=== PATIENT | male | born 1960 | race Caucasian/White ===

== ENCOUNTER 2020-04-06 08:16 | Outpatient (REF) | payer OTHER, SELFPAY ==
[2020-04-06 11:33] LABS: Estimated Average Glucose 134 mg/dL; Hemoglobin A1c % 6.3 %
[2020-04-06 12:02] LABS: Alanine Aminotransferase 21 U/L (0-40); Albumin Level 4.4 g/dL (3.5-5.0); Alkaline Phosphatase 74 U/L (39-117); Anion Gap 16 (12-20); Aspartate Amino Transferase 17 U/L (5-37); Bilirubin Total 1.1 mg/dL (0.0-1.0); Blood Urea Nitrogen 13 mg/dL (9-16); Calcium 8.8 mg/dL (8.4-10.2); Carbon Dioxide 26 mmol/L (22-29); Chloride 104 mmol/L (96-108); Cholesterol 200 mg/dL; Estimated Glomerular Filt Rate > 60; Glucose Fasting 143 mg/dL (60-99); HDL Cholesterol 34 mg/dL; LDL Cholesterol Calculated 128 mg/dl; Potassium 4.3 mmol/l (3.3-5.1); Sodium 142 mmol/L (135-145); Triglycerides 194 mg/dL
[2020-04-06 12:11] LABS: Prostate Specific Antigen Scr 5.88 ng/mL (<0.05-4.0); TSH reflex Free T4 0.63 mIU/mL (0.32-4.0)
[2020-04-06 12:17] LABS: Creatinine Urine 162.64 mg/dL; Microalbum/Creatinine Ratio Ur 11.6 ug/mg cr
== END 2020-04-06 08:17 | disposition home or self-care (01) ==
LOC: HO.HMGCLDS 08:16
PROVIDERS: PCP Nurse Practitioner Family; Visit Provider Nurse Practitioner Family
DX: Z00.00 Encounter for general adult medical examination without abnormal findings (principal); E11.9 Type 2 diabetes mellitus without complications; Z12.5 Encounter for screening for malignant neoplasm of prostate
CPT/HCPCS: 80053; 80061; 82043; 83036; 84153; 84443

== ENCOUNTER → 2020-04-10 09:04 | Outpatient (BNVA) | payer SELFPAY | PROVIDERS: PCP Nurse Practitioner Family; Visit Provider Internal Medicine | DX: Z02.79 Encounter for issue of other medical certificate (principal) ==

== ENCOUNTER → 2020-04-27 13:35 | Outpatient (BNVA) | payer OTHER, SELFPAY | PROVIDERS: PCP Nurse Practitioner Family; Visit Provider Physician Assistant | DX: Z76.89 Persons encountering health services in other specified circumstances (principal) ==

== ENCOUNTER 2020-05-07 16:30 | Outpatient (REF) | payer OTHER, SELFPAY ==
--- NOTE | 2020-05-07 | XR_ITS ---
EXAMINATION: XR PELVIS CLINICAL INFORMATION: Sacroiliitis COMPARISON: Previous x-ray February [address] of the abdomen and pelvis August 2016 TECHNIQUE: AP view of the pelvis. FINDINGS: Bone alignment is normal. No fracture or dislocation is seen. There is arthritis at the hip joints with joint space narrowing and osteophyte formation, right greater than left. There is evidence of mild proliferative arthritis at the sacroiliac joints with osteophytes. No erosive changes are seen. There are degenerative changes of the visualized lower lumbar spine. Soft tissues are unremarkable. XR/XR pelvis 1-2V IMPRESSION: Bilateral hip arthritis, right greater than left. Mild bilateral proliferative arthritis at the sacroiliac joints with small bony osteophytes. Degenerative changes of the visualized lumbar spine.
== END 2020-05-07 16:31 | disposition home or self-care (01) ==
LOC: HO.HMGCX 16:30
PROVIDERS: PCP Nurse Practitioner Family; Visit Provider Physician Assistant
DX: M46.1 Sacroiliitis, not elsewhere classified (principal); M16.0 Bilateral primary osteoarthritis of hip
CPT/HCPCS: 72170

== ENCOUNTER → 2020-05-18 14:54 | Outpatient (BNVA) | payer OTHER, SELFPAY | PROVIDERS: PCP Nurse Practitioner Family; Visit Provider Physician Assistant ==

== ENCOUNTER 2020-06-23 14:00 | Outpatient (REF) | payer OTHER, SELFPAY ==
[2020-06-23 17:33] LABS: Prostate Specific Antigen 5.57 ng/mL (<0.05-4.0)
== END 2020-06-23 14:01 | disposition home or self-care (01) ==
LOC: HO.HMGCLDS 14:00
PROVIDERS: PCP Internal Medicine; Visit Provider Urology
DX: R97.20 Elevated prostate specific antigen [PSA] (principal); Z12.5 Encounter for screening for malignant neoplasm of prostate
CPT/HCPCS: 36415; 84153

== ENCOUNTER 2020-07-17 09:29 | Day surgery (SDC) | payer OTHER, SELFPAY ==
[2020-07-10 14:57] VITALS: BMI 36.5
--- NOTE | 2020-07-16 11:03 | P.CONAN_ITS ---
Documented by User: Catina Aviles 07/16/20 11:03 HPI - Anesthesia Eval Consult details Narrative: 60yo M for Colonoscopy PMF Active Problems Active Problems: All Active Problems (Updated 07/10/20 @ 14:55 by Pallavi Hines) Physical exam (Acute) Diabetes (Acute) Screening PSA (prostate specific antigen) (Acute) Elevated PSA (Acute) Hot flash in male (Acute) Lumbar radiculopathy (Acute) Family history of colon cancer (Acute) Past Medical History Medical History (Updated 07/16/20 @ 16:44 by Thomas Hanks [facility]) BPH (benign prostatic hyperplasia) DM (diabetes mellitus), type 2 Dyslipidemia Elevated ferritin Family history of colon cancer Gout History of bladder stone HTN (hypertension) Lumbar radiculopathy Onychomycosis PO (obstructive sleep apnea) Sacroiliitis Screening for colon cancer Spinal stenosis Spondylosis of lumbar spine Tubular adenoma Family History Family History Father Unknown family medical history Mother Colon cancer Sister Diabetes mellitus Maternal Grandmother Unknown family medical history Brother No problems noted. Son No problems noted. Daughter No problems noted. Surgical History Surgical History (Updated 07/10/20 @ 14:47 by Pallavi Hines) History of colonoscopy History of knee surgery History of pilonidal cyst History of tonsillectomy History of umbilical hernia repair Social History Social History (Updated 05/18/20 @ 15:29 by Mariel Carrera PA-C) Household Members: Spouse Are you a primary acute care physical therapist to a significant other at home: No Do you presently have visiting nurse or other home services: No Alcohol intake: current Alcohol intake frequency: a few times a week Smoking Status: Never smoker Use of substances other than those prescribed or required for medical reasons: No Have you been hit, kicked, punched, or otherwise hurt by someone within the past year? 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 Meds Allergies Allergy/AdvReac Type Severity Reaction Status Date / Time No Known Allergies Allergy Verified 07/10/20 14:47 [No Known Allergies*] Home Medications Medication Instructions Recorded Confirmed Last Taken Type amlodipine 10 mg-benazepril 40 mg 1 cap PO DAILY 03/30/20 07/10/20 Unknown History capsule cyclobenzaprine 10 mg tablet 10 mg PO TID 05/20/20 07/10/20 Unknown History ibuprofen 800 mg tablet 800 mg PO TID 06/29/20 07/10/20 Unknown History Exam Exam Date and Time: July 16, 2020 1103 Height,Weight and Vital Signs: Height 5 ft 11 in Weight 118.841 kg Assessment and Plan Assessment Anesthesia Assessment: Chart Reviewed Documented by User: Daphne Crystal 07/17/20 10:00 [facility] Past Medical History Medical History (Updated 07/16/20 @ 16:44 by QUENTIN Pack) BPH (benign prostatic hyperplasia) DM (diabetes mellitus), type 2 Dyslipidemia Elevated ferritin Family history of colon cancer Gout History of bladder stone HTN (hypertension) Lumbar radiculopathy Onychomycosis PO (obstructive sleep apnea) Sacroiliitis Screening for colon cancer Spinal stenosis Spondylosis of lumbar spine Tubular adenoma Family History Family History Father Unknown family medical history Mother Colon cancer Sister Diabetes mellitus Maternal Grandmother Unknown family medical history Brother No problems noted. Son No problems noted. Daughter No problems noted. Surgical History Surgical History (Updated 07/10/20 @ 14:47 by Pallavi Hines) History of colonoscopy History of knee surgery History of pilonidal cyst History of tonsillectomy History of umbilical hernia repair Social History Social History (Updated 05/18/20 @ 15:29 by Mariel Carrera PA-C) Household Members: Spouse Are you a primary acute care physical therapist to a significant other at home: No Do you presently have visiting nurse or other home services: No Alcohol intake: current Alcohol intake frequency: a few times a week Smoking Status: Never smoker Use of substances other than those prescribed or required for medical reasons: No Have you been hit, kicked, punched, or otherwise hurt by someone within the past year? 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 [employer] Allergies Allergy/AdvReac Type Severity Reaction Status Date / Time No Known Allergies Allergy Verified 07/10/20 14:47 [No Known Allergies*] Home Medications Medication Instructions Recorded Confirmed Last Taken Type amlodipine 10 mg-benazepril 40 mg 1 cap PO DAILY 03/30/20 07/10/20 Unknown History capsule cyclobenzaprine 10 mg tablet 10 mg PO TID 05/20/20 07/10/20 Unknown History ibuprofen 800 mg tablet 800 mg PO TID 06/29/20 07/10/20 Unknown History Exam Airway Mallampati Class: III TM Dist: >3cm (Thick neck) Neck ROM: Full Partial: Upper (Perm) Heart: RRR Lungs: CTA BL Assessment and Plan Assessment Anesthesia Assessment: Anesthesia Plan Discussed and Chart Reviewed Final Anesthetic Review NPO: Yes ASA Class: III Final Preanesthetic Review: No Changes in Pt Med Stat and Consent Obtained/Reviewed Patient Risk: Intermediate Procedure Risk: Intermediate Anesthetic Plan Anesthetic Plan: MAC: Disposition: Standard PACU
--- NOTE | 2020-07-17 09:47 | W.PM.OPN ---
Operative Note Operative Note Date of Service: 07/17/20 Narrative: Pre-op diagnosis: Colon cancer screening, history of colon polyps, family history of colon cancer (mom of colon cancer at age 54) Post-op diagnosis: other (Colon polyps, hemorrhoids) Procedure: COLONOSCOPY TILL CECUM WITH SNARE POLYPECTOMY Consent: Indications for the procedure and potential complications of bleeding, perforation, reaction to medications and missed diagnosis were discussed with the patient and informed consent was obtained. Instrument: Olympus PCF H 190 L variable stiffness pediatric colonoscope Monitoring: Vital signs and clinical assessment, intermittent blood pressure monitoring, continuous EKG monitoring, Pulse oximetry and Carbon Dioxide monitoring were done throughout the procedure. Colon withdrawl time was 29 minutes. Procedure: The patient was placed in the left lateral decubitis position and pre-procedure medications were administered. After a digital rectal examination of the ano-rectum, the video colonoscope was inserted into the rectum and advanced through the colon to the cecum. The colonoscope was slowly withdrawn in a retrograde panoramic fashion and the colon mucosa was carefully examined including a retroflexed view of the rectum. Findings and interventions are described below. Procedure Difficulty: colon was long and tortuous and there was some loop formation. Patient was placed in the supine position with application of left lower quadrant pressure to intubate the ascending colon. Findings: Terminal Ileum: Not evaluated Cecum: A 6-7mm sessile polyp removed with a cold snare and a 4-5 mm sessile polyp removed with a cold bx. Ascending Colon: Normal Transverse Colon: Two 8 - 10 mm sessile polyp removed with a cold snare. A 1.5 to 2 cm elongated polyp removed with a hot snare. Two 3-4 mm sessile polyp removed with the cold biopsy Descending Colon: Normal Sigmoid Colon: A 10 mm diminutive appearing polyp removed with a cold snare Rectum: Normal Ano-rectum: Moderate internal hemorrhoids Colon preparation: Good after some irrigation Impression and Post Procedure Diagnosis: Colonoscopy Findings: Eight small to medium sized polyps removed Moderate hemorrhoids on retroflexed exam. Plan: Await pathology results Patient has an appointment on 07/30/20 in the [facility] with JULIO Smith . Repeat Colonoscopy interval based on path results - in 2-3 years if polyps are adenomatous and 5 years if polyps are hyperplastic. Recommend using an adult colonoscopy for future colonoscopies Above findings were reviewed with the patient and colon polyps handout was given in the discharge area Surgeon: Guera Esqueda MD Anesthesia: MAC (Dr Kelly) Lightning Rod Erector: Wallace Wells Estimated blood loss (mL): 0 Pathology: other (A- CECAL POLYPS B- TRANSVERSE COLON POLYPS C- SIGMOID POLYP) Condition: stable Disposition: PACU
--- NOTE | 2020-07-17 09:47 | MHC.SHP ---
Pre-Procedural Eval Section A The patient is an INPATIENT: No The History & Physical has been completed within 30 days and I have reviewed it.: No Section B Chief Complaint: hx of maliganant neoplasm Details of Present Illness: colon cancer screening, FH of colon cancer Relevant Family History (Specify if Yes): Yes Relevant Social History: None Present Medications: see Short Stay Collaborative assessment Medical History: Significant History (BPH (benign prostatic hyperplasia) Dyslipidemia Elevated ferritin Family history of colon cancer Gout Lumbar radiculopathy Onychomycosis PO (obstructive sleep apnea) Sacroiliitis Screening for colon cancer Spinal stenosis Tubular adenoma) History of Previous Operations: Relevant previous surgery/procedure and date(s) (History of colonoscopy History of knee surgery History of pilonidal cyst History of tonsillectomy) Allergies: Allergies Allergy/AdvReac Type Severity Reaction Status Date / Time No Known Allergies Allergy Verified 07/10/20 14:47 [No Known Allergies*] Review of Systems Sugical H&P ROS: Negative: Constitution, Cardiovascular, Respiratory and Gastrointestinal Exam Surgical H&P Exam: Normal: Heart, Normal: Lungs, Normal: Extremities and Normal: Abdomen Plan Diagnosis/Plan: Unchanged I have reviewed the history and physical and performed a pertinent physical examination on my patient. No changes have occurred unless specified.
[2020-07-17 09:48] VITALS: BP 148/77; PULSE 68; RESP 16; TEMP 36.8; O2SAT 96
[2020-07-17] MEDS: Lactated Ringers 1,000 ML 100 ML IVCONT (09:59)
[2020-07-17 11:04] VITALS: BP 113/60; PULSE 75; RESP 16; TEMP 37.1; O2SAT 95
[2020-07-17 11:19] VITALS: BP 123/68; PULSE 77; RESP 18; O2SAT 96
== END 2020-07-17 12:02 | disposition home or self-care (01) ==
PROVIDERS: PCP Nurse Practitioner Family; Visit Provider Internal Medicine Gastroenterology
PROC: 0DJD8ZZ Inspection of Lower Intestinal Tract, Via Natural or Artificial Opening Endoscopic (ICD-10-PCS; CPT 45378; principal; 2020-07-17 11:00)
DX: Z12.11 Encounter for screening for malignant neoplasm of colon (principal); Z80.0 Family history of malignant neoplasm of digestive organs; Z86.010 Personal history of colon polyps; D12.0 Benign neoplasm of cecum; D12.3 Benign neoplasm of transverse colon; K63.5 Polyp of colon; K64.8 Other hemorrhoids; N40.0 Benign prostatic hyperplasia without lower urinary tract symptoms; G47.33 Obstructive sleep apnea (adult) (pediatric); I10 Essential (primary) hypertension; E11.9 Type 2 diabetes mellitus without complications; Z79.899 Other long term (current) drug therapy
CPT/HCPCS: 45385; 45380; 88305

== ENCOUNTER → 2020-07-30 13:43 | Outpatient (BNVA) | payer OTHER, SELFPAY | PROVIDERS: PCP Nurse Practitioner Family; Visit Provider Physician Assistant ==

== ENCOUNTER 2020-07-31 07:50 | Outpatient (REF) | payer OTHER, SELFPAY ==
[2020-07-31 11:19] LABS: MANUAL DIFF FLAG NO
[2020-07-31 11:39] LABS: Basophils Percent Auto 0.6 % (0-2); Eosinophils Absolute Auto 0.2 X10*3/uL (0.0-0.4); Eosinophils Percent Auto 2.8 % (0-4); Hematocrit 40.1 % (42-52); Hemoglobin 13.5 g/dl (14.0-18.0); Imm Gran Abs Auto 0.07 X10*3/uL (0.00-0.03); Imm Gran Pct Auto 1.3 % (0.0-0.4); Lymphocytes Absolute Auto 1.4 X10*3/uL (1.2-4.9); Lymphocytes Percent Auto 26.6 % (20-40); Mean Corpuscular HGB Conc 33.7 g/dl (31.0-36.0); Mean Corpuscular Volume 92.2 fL (80-98); Mean Platelet Volume 9.7 fL (9.4-12.4); Monocytes Absolute Auto 0.4 X10*3/uL (0.1-1.2); Monocytes Percent Auto 6.6 % (2-11); Neutrophils Absolute Auto 3.3 X10*3/uL (2.0-8.3); Neutrophils Percent Auto 62.1 % (45-73); Platelet Count 226 X10*3/uL (160-400); Red Blood Count 4.35 X10*6/uL (4.60-5.80); Red Cell Distribution Width 12.4 % (11.0-16.0); White Blood Count 5.3 X10*3/uL (4.8-10.8)
[2020-07-31 11:59] LABS: Estimated Average Glucose 117 mg/dL; Hemoglobin A1c % 5.7 %
[2020-07-31 12:07] LABS: Creatinine Urine 100.81 mg/dL; Microalbum/Creatinine Ratio Ur 6.9 ug/mg cr
[2020-07-31 12:21] LABS: Alanine Aminotransferase 25 U/L (0-40); Albumin Level 4.2 g/dL (3.5-5.0); Alkaline Phosphatase 69 U/L (39-117); Anion Gap 10 (12-20); Aspartate Amino Transferase 20 U/L (5-37); Bilirubin Total 0.7 mg/dL (0.0-1.0); Blood Urea Nitrogen 14 mg/dL (9-16); Calcium 8.9 mg/dL (8.4-10.2); Carbon Dioxide 30 mmol/L (22-29); Chloride 106 mmol/L (96-108); Estimated Glomerular Filt Rate > 60; Glucose Random 133 mg/dL (60-115); Potassium 4.4 mmol/L (3.3-5.1); Sodium 142 mmol/L (135-145); Total Protein 6.5 g/dL (6.5-8.0)
[2020-08-09 11:42] LABS: Testosterone, Total 353 ng/dL (250-1100)
== END 2020-07-31 07:51 | disposition home or self-care (01) ==
LOC: HO.HMGCLDS 07:50
PROVIDERS: PCP Nurse Practitioner Family; Visit Provider Nurse Practitioner Family
DX: E11.9 Type 2 diabetes mellitus without complications (principal); R23.2 Flushing
CPT/HCPCS: 36415; 80053; 82043; 83036; 84403; 85025

== ENCOUNTER 2020-08-03 14:14 | Outpatient (REF) | payer OTHER, SELFPAY ==
--- NOTE | ~2020-08-03 | XR_ITS ---
EXAMINATION: XR KNEE, RIGHT CLINICAL INFORMATION: Pain right knee, trauma COMPARISON: None TECHNIQUE: Four views of the right knee. FINDINGS: There is moderate superior joint effusion. No visible acute fracture or dislocation seen. There is loss of medial and lateral compartment joint space. No bony erosive changes seen. The soft tissues are normal XR/XR knee RT 4V IMPRESSION: Moderate suprapatellar joint effusion. No visible acute fracture, dislocation or subluxation seen.
== END 2020-08-03 14:15 | disposition home or self-care (01) ==
LOC: HO.HMGCX 14:14
PROVIDERS: PCP Internal Medicine; Visit Provider Hospitalist
DX: M25.561 Pain in right knee (principal)
CPT/HCPCS: 73564

== ENCOUNTER 2020-08-10 | Outpatient (REF) | payer OTHER, SELFPAY ==
[2020-08-14 12:11] LABS: FIT Int Ctl YES; FIT1 NEGATIVE (NEGATIVE); FIT2 NEGATIVE (NEGATIVE)
== END 2020-08-10 00:01 | disposition home or self-care (01) ==
LOC: HO.LNP
PROVIDERS: Visit Provider Nurse Practitioner Family
DX: Z12.11 Encounter for screening for malignant neoplasm of colon (principal); Z12.12 Encounter for screening for malignant neoplasm of rectum
CPT/HCPCS: 82274

== ENCOUNTER → 2020-08-14 08:17 | Outpatient (BNVA) | payer OTHER, SELFPAY | PROVIDERS: PCP Hospitalist; Visit Provider Physician Assistant | DX: M17.11 Unilateral primary osteoarthritis, right knee (principal) | CPT/HCPCS: 20610; 99202; J1040 ==

== ENCOUNTER → 2020-08-20 13:22 | Outpatient (BNVA) | payer OTHER, SELFPAY | PROVIDERS: PCP Hospitalist; Visit Provider Physician Assistant | DX: M25.469 Effusion, unspecified knee (principal) | CPT/HCPCS: 20610; 99212 ==

== ENCOUNTER → 2020-09-16 11:08 | Outpatient (BNVA) | payer OTHER, SELFPAY | PROVIDERS: PCP Internal Medicine; Referring Provider Nurse Practitioner Family; Visit Provider Surgery | DX: L02.215 Cutaneous abscess of perineum (principal) | CPT/HCPCS: 99202 ==

== ENCOUNTER 2020-10-19 11:23 | Outpatient (REF) | payer OTHER, SELFPAY ==
--- NOTE | ~2020-10-19 | XR_ITS ---
EXAMINATION: XR KNEE AP STANDING CLINICAL INFORMATION: Pain COMPARISON: Right knee radiograph on 08/03/2020 TECHNIQUE: AP bilateral standing view of the knees was obtained. FINDINGS: Right knee: Mild medial and lateral compartment joint space narrowing. No significant soft tissue swelling. No acute fracture. Left knee: Mild medial and lateral compartment joint space narrowing. No significant soft tissue swelling. No acute fracture. XR/XR knee standing BI IMPRESSION: Moderate degenerative disease of the bilateral knees. A right joint effusion noted on the prior x-ray, however the lateral exam was not included today and therefore evaluation for effusion cannot be performed.
== END 2020-10-19 11:24 | disposition home or self-care (01) ==
LOC: HO.HOSX 11:23
PROVIDERS: Visit Provider Orthopaedic Surgery
DX: M25.461 Effusion, right knee (principal)
CPT/HCPCS: 20610; 73565; 99212; J1100

== ENCOUNTER 2021-01-14 14:15 | Outpatient (REF) | payer OTHER, SELFPAY | END 2021-01-14 14:16 | disposition home or self-care (01) | LOC: HO.LNP 14:15 | PROVIDERS: Visit Provider Internal Medicine | DX: Z20.822 Contact with and (suspected) exposure to COVID-19 (principal); J06.9 Acute upper respiratory infection, unspecified | CPT/HCPCS: U0003; U0005 ==

== ENCOUNTER → 2021-01-28 15:23 | Outpatient (BNVA) | payer OTHER, SELFPAY | PROVIDERS: Visit Provider Orthopaedic Surgery | DX: M16.11 Unilateral primary osteoarthritis, right hip (principal) | CPT/HCPCS: 99212 ==

== ENCOUNTER → 2021-02-19 10:28 | Outpatient (BNVA) | payer OTHER, SELFPAY | PROVIDERS: PCP Internal Medicine; Visit Provider Nurse Practitioner Family | DX: M16.11 Unilateral primary osteoarthritis, right hip (principal) | CPT/HCPCS: 20610; 20552; 99202; J3300 ==

== ENCOUNTER → 2021-04-02 07:56 | Outpatient (BNVA) | payer SELFPAY | PROVIDERS: PCP Internal Medicine; Visit Provider Internal Medicine | DX: Z02.79 Encounter for issue of other medical certificate (principal) ==

== ENCOUNTER 2021-04-26 13:07 | Outpatient (REF) | payer OTHER, SELFPAY ==
[2021-04-26 16:41] LABS: MANUAL DIFF FLAG NO
[2021-04-26 16:46] LABS: Basophils Percent Auto 0.5 % (0-2); Eosinophils Absolute Auto 0.1 X10*3/uL (0.0-0.4); Eosinophils Percent Auto 1.4 % (0-4); Hematocrit 42.9 % (42.0-52.0); Hemoglobin 14.7 g/dl (14.0-18.0); Imm Gran Abs Auto 0.04 X10*3/uL (0.00-0.03); Imm Gran Pct Auto 0.7 % (0.0-0.4); Lymphocytes Absolute Auto 1.3 X10*3/uL (1.2-4.9); Lymphocytes Percent Auto 22.1 % (20-40); Mean Corpuscular HGB Conc 34.3 g/dl (31.0-36.0); Mean Corpuscular Hemoglobin 31.5 pg (27.0-33.0); Mean Corpuscular Volume 91.9 fL (80.0-98.0); Mean Platelet Volume 10.1 fL (9.4-12.4); Monocytes Absolute Auto 0.4 X10*3/uL (0.1-1.2); Monocytes Percent Auto 7.4 % (2-11); Neutrophils Absolute Auto 3.9 x10*3/uL (2.0-8.3); Neutrophils Percent Auto 67.9 % (45-73); Platelet Count 198 X10*3/uL (160-400); Red Blood Count 4.67 X10*6/uL (4.60-5.80); Red Cell Distribution Width 12.6 % (11.0-16.0); White Blood Count 5.7 X10*3/uL (4.8-10.8)
[2021-04-26 17:02] LABS: Appearance Urine CLEAR; Color Urine YELLOW; Glucose Urine UA NEG (NEG); Leukocyte Esterase Urine TRACE (NEG); Nitrite Urine NEG (NEG); Specific Gravity - Urine >= 1.030 (1.005-1.025); UACC Culture Trigger YES; Urine Blood TRACE (NEG); Urine Ketones NEG (NEG); Urine Protein TRACE MG/DL (NEG-TRACE)
[2021-04-26 17:10] LABS: Alanine Aminotransferase 22 U/L (0-40); Albumin Level 4.3 g/dL (3.5-5.0); Alkaline Phosphatase 98 U/L (39-117); Anion Gap 13 (12-20); Aspartate Amino Transferase 17 U/L (5-37); Bilirubin Total 1.2 mg/dL (0.0-1.0); Blood Urea Nitrogen 12 mg/dL (9-16); Calcium 9.7 mg/dL (8.4-10.2); Carbon Dioxide 29 mmol/L (22-29); Chloride 106 mmol/L (96-108); Cholesterol 172 mg/dL; Estimated Glomerular Filt Rate > 60; Glucose Fasting 117 mg/dL (60-99); HDL Cholesterol 31 mg/dL; LDL Cholesterol Calculated 70 mg/dl; Potassium 4.5 mmol/L (3.3-5.1); Sodium 143 mmol/L (135-145); Triglycerides 357 mg/dL
[2021-04-26 17:25] LABS: Ferritin 401 ng/mL (20-250); TSH reflex Free T4 0.75 uIU/mL (0.32-4.0)
[2021-04-26 17:57] LABS: Hyaline Casts Urine 0-2 /LPF; Mucus Urine 2+ /LPF; Renal Epithelial Cells Urine 2+ /LPF; Squamous Epithelial Cell Urine 1+ /LPF
[2021-04-26 18:24] LABS: Folate 9.3 ng/mL (> or = 4.0); Vitamin B12 494 pg/mL (200-900)
[2021-04-27 03:35] LABS: Estimated Average Glucose 134 mg/dL; Hemoglobin A1c % 6.3 %
== END 2021-04-26 13:08 | disposition home or self-care (01) ==
LOC: HO.HMGCLDS 13:07
PROVIDERS: PCP Nurse Practitioner Family; Visit Provider Nurse Practitioner Family
DX: Z00.00 Encounter for general adult medical examination without abnormal findings (principal); D64.9 Anemia, unspecified; R79.89 Other specified abnormal findings of blood chemistry; E11.9 Type 2 diabetes mellitus without complications
CPT/HCPCS: 36415; 80053; 80061; 81001; 81003; 82607; 82728; 82746; 83036; 84443; 85025; 87086

== ENCOUNTER 2021-04-27 13:21 | Outpatient (REF) | payer OTHER, SELFPAY | END 2021-04-27 13:22 | disposition home or self-care (01) | LOC: HO.HMGCLDS 13:21 | PROVIDERS: Visit Provider Internal Medicine | DX: Z13.89 Encounter for screening for other disorder (principal) ==

== ENCOUNTER 2021-04-27 13:25 | Outpatient (REF) | payer OTHER, SELFPAY ==
[2021-04-27 17:25] LABS: Prostate Specific Antigen 3.76 ng/mL (<0.05-4.0)
== END 2021-04-27 13:26 | disposition home or self-care (01) ==
LOC: HO.HMGCLDS 13:25
PROVIDERS: Internal Medicine; PCP Nurse Practitioner Family; Visit Provider Urology
DX: R97.20 Elevated prostate specific antigen [PSA] (principal); Z12.5 Encounter for screening for malignant neoplasm of prostate
CPT/HCPCS: 36415; 84153; C9803; U0003; U0005

== ENCOUNTER 2021-05-26 17:03 | Emergency (ER) | payer OTHER, SELFPAY ==
--- NOTE | ~2021-05-26 | CT_ITS ---
EXAMINATION: CT ABDOMEN AND PELVIS WITHOUT CONTRAST CLINICAL INFORMATION: Left-sided abdominal pain, suspected ureterovesicular junction calculus disease. COMPARISON: CT of the abdomen and pelvis done on 09/16/2016. TECHNIQUE: Multidetector volumetric imaging was performed from the superior aspect of the liver through the pubic symphysis. Sagittal and coronal reformatted images were obtained on the technologist's workstation. This CT examination was performed using dose optimization techniques as appropriate, variously including the following: *Automated exposure control *Adjustment of mA and/or kV according to patient size (this includes techniques or standardized protocols for targeted exams where dose is matched to indication/reason for exam; i.e. extremities or head) *Use of iterative reconstruction technique DLP: 1081.99 mGy-cm FINDINGS: LUNG BASES: The visualized lung bases are unremarkable. LIVER, GALLBLADDER, AND BILIARY TREE: The liver is normal in size, shape, and attenuation. No focal hepatic lesion or biliary ductal dilatation is present. Multiple gallstones are present without evidence of any wall thickening or pericholecystic fluid. No evidence of any biliary obstruction present. PANCREAS: Unremarkable. SPLEEN: Unremarkable. ADRENAL GLANDS: Unremarkable. KIDNEYS AND URETERS: There is a punctate millimeter size nonobstructing calculus present within the inferior posterior calyx of the right kidney (372:4). Right renal pelvicalyceal system and right ureter appear decompressed. No perinephric stranding. On the left side, moderate left-sided hydroureteronephrosis is present secondary to an obstructing calculus seen at the mid part of the left ureter at the level of superior endplate of L4 vertebral body measures 0.6 cm at its maximum dimension with Hounsfield value of 249 (49:6) An additional radiopaque 0.4 cm nonobstructing calculus is seen within the inferior-anterior calyx of the left kidney (407:4). There is an exophytic well-circumscribed hypodense lesion identified at the inferior pole of the left kidney, measures approximately 3.6 cm, with Hounsfield value of -24 similar to prior study, consistent with an incidental cyst. BLADDER: Unremarkable. GASTROINTESTINAL TRACT: The small and large bowel are unremarkable. The appendix is nonvisualized. ABDOMINAL WALL: No significant hernia is appreciated. LYMPH NODES: Normal. VASCULAR: Mild diffuse atherosclerotic disease of the aorta is noted. PELVIC VISCERA: The prostate is abnormal, enlarged, shows parenchymal calcifications and is protruding into the base of the bladder, similar to prior study. No evidence of any periprostatic lymphadenopathy. The seminal vesicles are unremarkable. No evidence of any free fluid and/or free air. 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 Multilevel degenerative spondylosis related changes are also noted within the visualized thoracolumbar spine including facet degenerative arthritic changes, unchanged. CT/CT abdomen pelvis wo con IMPRESSION: 1. Abnormal noncontrast CT scan of the abdomen and pelvis showing evidence of any 0.6 cm radiopaque obstructing calculus seen within the mid part of the left ureter, producing proximal moderate left-sided hydroureteronephrosis. An additional nonobstructing 0.4 cm calculus is also noted within the inferior-anterior calyx of the left kidney and a smaller punctate 1 mm size nonobstructing calculus within the inferior posterior calyx of the right kidney. 2. Abnormal enlarged prostate, protruding into the base of the bladder, shows parenchymal calcifications. 3. Multiple gallstones without any CT features of superimposed acute cholecystitis or biliary obstruction. Fleischner guidelines were followed.
[2021-05-26 17:28] VITALS: BP 161/86; PULSE 76; RESP 16; TEMP 36.7; O2SAT 97; BMI 38.3
[2021-05-26 17:43] LABS: MANUAL DIFF FLAG NO
[2021-05-26 17:44] LABS: Basophils Percent Auto 0.2 % (0-2); Eosinophils Absolute Auto 0.1 X10*3/uL (0.0-0.4); Eosinophils Percent Auto 1.6 % (0-4); Hematocrit 40.9 % (42.0-52.0); Hemoglobin 14.3 g/dl (14.0-18.0); Imm Gran Abs Auto 0.03 X10*3/uL (0.00-0.03); Imm Gran Pct Auto 0.5 % (0.0-0.4); Lymphocytes Absolute Auto 1.3 X10*3/uL (1.2-4.9); Lymphocytes Percent Auto 23.6 % (20-40); Mean Corpuscular Hemoglobin 31.6 pg (27.0-33.0); Mean Corpuscular Volume 90.5 fL (80.0-98.0); Mean Platelet Volume 8.9 fL (9.4-12.4); Monocytes Absolute Auto 0.5 X10*3/uL (0.1-1.2); Neutrophils Absolute Auto 3.7 x10*3/uL (2.0-8.3); Neutrophils Percent Auto 66.1 % (45-73); Platelet Count 167 X10*3/uL (160-400); Red Blood Count 4.52 X10*6/uL (4.60-5.80); Red Cell Distribution Width 12.7 % (11.0-16.0); White Blood Count 5.6 X10*3/uL (4.8-10.8)
[2021-05-26 17:58] LABS: Alanine Aminotransferase 20 U/L (0-40); Albumin Level 4.3 g/dL (3.5-5.0); Alkaline Phosphatase 89 U/L (39-117); Anion Gap 10 (12-20); Aspartate Amino Transferase 21 U/L (5-37); Bilirubin Total 1.5 mg/dL (0.0-1.0); Blood Urea Nitrogen 9 mg/dL (9-16); Calcium 9.3 mg/dL (8.4-10.2); Carbon Dioxide 30 mmol/L (22-29); Chloride 104 mmol/L (96-108); Creatinine Clr Calc Pharmacy 117.2; Estimated Glomerular Filt Rate > 60; Glucose Random 152 mg/dL (60-115); Lipase 39 U/L (8-78); Sodium 140 mmol/L (135-145)
[2021-05-26 17:58] LABS: Appearance Urine CLEAR; Color Urine YELLOW; Glucose Urine UA NEG (NEG); Leukocyte Esterase Urine TRACE (NEG); Nitrite Urine NEG (NEG); UACC Culture Trigger YES; Urine Blood 3+ (NEG); Urine Ketones NEG (NEG); Urine Protein NEG (NEG-TRACE)
[2021-05-26 18:09] LABS: Bacteria Urine 1+ /LPF; WBC Urine 0-2 /HPF (0-4)
--- NOTE | 2021-05-26 20:29 | ED_ITS ---
HPI - Abdominal Pain General Chief Complaint: Abdominal Pain Stated Complaint: abd pain x3 days sent from office Time Seen by Provider: 05/26/21 20:29 Source: patient Mode of arrival: ambulatory Limitations: no limitations History of Present Illness HPI narrative: Patient no significant past medical history except for bladder stone in the past. Here for acute onset of left lower quadrant pain for last 4 days getting worse pain is constant all the time intermittently gets worse nausea no vomiting no urinary complaint has slight diarrhea no fever no chills no blood in stool no hematuria Related Data Home Medications Medication Instructions Recorded Confirmed cyclobenzaprine 10 mg tablet 10 mg PO TID 05/20/20 05/26/21 ibuprofen 800 mg tablet 800 mg PO TID 06/29/20 05/26/21 oxycodone-acetaminophen 5 mg-325 1 tab PO BID PRN 10/19/20 05/26/21 mg tablet Previous Rx's Medication Instructions Recorded tamsulosin 0.4 mg capsule 0.4 mg PO DAILY #90 cap 05/27/20 atorvastatin 20 mg tablet 20 mg PO BEDTIME 90 Days #90 tab 04/30/21 omega-3 acid ethyl esters 1 gram 1 cap PO BID 90 Days #180 cap 05/01/21 capsule sildenafil 100 mg tablet 100 mg PO DAILY PRN 30 Days #30 05/10/21 tab allopurinol 300 mg tablet 300 mg PO DAILY #90 tab 05/19/21 amlodipine 10 mg-benazepril 40 mg 1 cap PO DAILY #90 cap 05/19/21 capsule trazodone 100 mg tablet 100 mg PO BEDTIME #90 tab 05/19/21 Allergies Allergy/AdvReac Type Severity Reaction Status Date / Time No Known Allergies Allergy Verified 05/26/21 18:11 [No Known Allergies*] Review of Systems Review of Systems Yes all other systems are reviewed and are negative Physical Exam Verdana 4l Vital Signs: Verdana 4d Verdana 4d Vital Signs: Verdana 4d Verdana 4Bd Last Vital Signs Verdana 4d Assistant Operations Manager New 4d Assistant Operations Manager New 4d Temp 98.6 F 05/26/21 23:17 Assistant Operations Manager New 4d Pulse 74 05/26/21 23:17 Assistant Operations Manager New 4d Resp 16 05/26/21 23:17 BP 154/79 H 05/26/21 23:17 Pulse Ox 97 05/26/21 23:17 BMI result Body Mass Index 38.3 Appearance: Alert. Oriented X3 in mild distress Eyes: No pallor icterus ENT: Pharynx normal. Oral Mucosa moist Neck: Normal inspection. Neck supple. CVS: Normal heart rate and rhythm. Pulses normal. Respiratory: No respiratory distress. Equal air entry bilateral, no wheezing/rales/rhonchi Abdomen: Soft rib tenderness left lower quadrant and left flank area Bowel sounds are present, no mass palpable, Skin: Skin warm and dry. Normal skin color. Normal skin turgor. Extremities: No lower extremity edema. No calf tenderness Neuro: Oriented X 3. MDM - Abdominal Pain MDM Narrative Medical decision making narrative: Patient with left ureteric stone with moderate hydronephrosis already taking Flomax and Percocet at home has urologist to follow pain medication as advised Lab Data Result diagrams: 05/26/21 17:39 05/26/21 17:39 Labs: Lab Results 05/26/21 05/26/21 05/26/21 Range/Units 17:39 17:39 17:47 WBC 5.6 (4.8-10.8) X10*3/uL RBC 4.52 L (4.60-5.80) X10*6/uL Hgb 14.3 (14.0-18.0) g/dl Hct 40.9 L (42.0-52.0) % MCV 90.5 (80.0-98.0) fL MCH 31.6 (27.0-33.0) pg MCHC 35.0 (31.0-36.0) g/dl RDW 12.7 (11.0-16.0) % Plt Count 167 (160-400) X10*3/uL MPV 8.9 L (9.4-12.4) fL Immature Gran % (Auto) 0.5 H (0.0-0.4) % Neut % (Auto) 66.1 (45-73) % Lymph % (Auto) 23.6 (20-40) % [place] % (Auto) 8.0 (2-11) % Eos % (Auto) 1.6 (0-4) % Baso % (Auto) 0.2 (0-2) % Lymph # (Auto) 1.3 (1.2-4.9) X10*3/uL [place] # (Auto) 0.5 (0.1-1.2) X10*3/uL Eos # (Auto) 0.1 (0.0-0.4) X10*3/uL Baso # (Auto) 0.0 (0.0-0.2) X10*3/uL Abs Immat Gran (auto) 0.03 (0.00-0.03) X10*3/uL Absolute Neuts (auto) 3.7 (2.0-8.3) x10*3/uL Absolute Nucleated RBC 0.000 (0.0-0.012) X10*3/uL Nucleated RBC % (auto) 0.0 (0.0-0.2) /100WBC Sodium 140 (135-145) mmol/L Potassium 4.0 (3.3-5.1) mmol/L Chloride 104 (96-108) mmol/L Carbon Dioxide 30 H (22-29) mmol/L Anion Gap 10 L (12-20) BUN 9 (9-16) mg/dL Creatinine 0.89 (0.5-1.4) mg/dL Estim Creat Clear Calc 117.2 Estimated GFR > 60 Random Glucose 152 H (60-115) mg/dL Calcium 9.3 (8.4-10.2) mg/dL Total Bilirubin 1.5 H (0.0-1.0) mg/dL AST 21 (5-37) U/L ALT 20 (0-40) U/L Alkaline Phosphatase 89 (39-117) U/L Total Protein 7.0 (6.5-8.0) g/dL Albumin 4.3 (3.5-5.0) g/dL Lipase 39 (8-78) U/L Urine Color YELLOW Urine Appearance CLEAR Urine pH 6.0 (5.0-8.0) Ur Specific [place] 1.010 (1.005-1.025) Urine Protein NEG (NEG-TRACE) MG/DL Urine Glucose (UA) NEG (NEG) MG/DL Urine Ketones NEG (NEG) MG/DL Urine Blood 3+ H (NEG) Urine Nitrite NEG (NEG) Ur Leukocyte Esterase TRACE H (NEG) Urine RBC 15-29 H (0) /HPF Urine WBC 0-2 (0-4) /HPF Ur Squamous Epith Cells NONE /LPF Urine Bacteria 1+ /LPF Discharge Plan Discharge Clinical Impression: Kidney stone on left side Patient Disposition: Home, Self-Care Instructions: Kidney Stones (ED) Additional Instructions: Continue to take your Flomax and Percocet for pain Drink plenty of fluids Follow-up with your urologist Report to the ER if pain gets worse Prescriptions: No Action tamsulosin 0.4 mg capsule 0.4 mg PO DAILY Qty: 90 1RF atorvastatin 20 mg tablet 20 mg PO BEDTIME 90 Days Qty: 90 3RF omega-3 acid ethyl esters 1 gram capsule 1 cap PO BID 90 Days Qty: 180 0RF sildenafil 100 mg tablet 100 mg PO DAILY PRN (Reason: sexual activity) 30 Days Qty: 30 6RF Rx Instructions: administer 30 minutes to 4 hours before activity trazodone 100 mg tablet 100 mg PO BEDTIME Qty: 90 1RF allopurinol 300 mg tablet 300 mg PO DAILY Qty: 90 0RF amlodipine-benazepril 10-40 mg capsule 1 cap PO DAILY Qty: 90 0RF cyclobenzaprine 10 mg tablet 10 mg PO TID 0RF ibuprofen 800 mg tablet 800 mg PO TID 0RF oxycodone-acetaminophen 5-325 mg tablet 1 tab PO BID [id number] Referrals: Navarro Small MD [Physician] - 1 day Interventions: ED Discharge Assessment Last Done: 05/26/21 23:27 Discharge Date/Time: 05/26/21 23:28 [facility] Past Medical History Medical History BPH (benign prostatic hyperplasia) DM (diabetes mellitus), type 2 Dyslipidemia Elevated ferritin Family history of colon cancer Gout Hemorrhoids History of bladder stone HTN (hypertension) Lumbar radiculopathy Onychomycosis PO (obstructive sleep apnea) Sacroiliitis Screening for colon cancer Spinal stenosis Spondylosis of lumbar spine Tubular adenoma Surgical History History of colonoscopy History of knee surgery History of pilonidal cyst History of tonsillectomy History of umbilical hernia repair Family History Family History Father Unknown family medical history Mother Colon cancer Sister Diabetes mellitus Maternal Grandmother Unknown family medical history Brother No problems noted. Son No problems noted. Daughter No problems noted. 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
[2021-05-26 20:41] VITALS: BP 170/88; PULSE 72; RESP 20; TEMP 36.8; O2SAT 97
[2021-05-26] MEDS: 0.9 % Sodium Chloride 1,000 ML 999 ML IV (21:05)
[2021-05-26] MEDS: Ketorolac Tromethamine 30 MG/ML VIAL IVPUSH (21:05)
--- NOTE | 2021-05-26 21:31 | PC.NURSE ---
Pt medicated per MAR Pt refusing morphine and zofran at this moment. Pt states pain is tolerable and denies any nausea. Will continue to monitor
[2021-05-26 23:17] VITALS: BP 154/79; PULSE 74; RESP 16; TEMP 37; O2SAT 97
== END 2021-05-26 23:28 | disposition home or self-care (01) ==
PROVIDERS: Emergency Provider Internal Medicine; PCP Nurse Practitioner Family
DX: N20.0 Calculus of kidney (principal); R10.32 Left lower quadrant pain; Z79.899 Other long term (current) drug therapy
CPT/HCPCS: 36415; 74176; 80053; 81001; 83690; 85025; 87086; 96361; 96374; 96375; 99284; J1885

== ENCOUNTER → 2021-07-12 13:55 | Outpatient (BNVA) | payer OTHER, SELFPAY | PROVIDERS: PCP Nurse Practitioner Family; Visit Provider Orthopaedic Surgery | DX: Z13.89 Encounter for screening for other disorder (principal) ==

== ENCOUNTER 2021-07-16 11:50 | Outpatient (REF) | payer OTHER, SELFPAY ==
[2021-07-16 13:37] LABS: MANUAL DIFF FLAG NO
[2021-07-16 13:39] LABS: Basophils Percent Auto 0.2 % (0-2); Eosinophils Absolute Auto 0.1 X10*3/uL (0.0-0.4); Eosinophils Percent Auto 2.3 % (0-4); Hematocrit 40.8 % (42.0-52.0); Hemoglobin 13.9 g/dl (14.0-18.0); Imm Gran Abs Auto 0.04 X10*3/uL (0.00-0.03); Imm Gran Pct Auto 0.8 % (0.0-0.4); Lymphocytes Absolute Auto 1.2 X10*3/uL (1.2-4.9); Lymphocytes Percent Auto 23.5 % (20-40); Mean Corpuscular HGB Conc 34.1 g/dl (31.0-36.0); Mean Corpuscular Hemoglobin 31.2 pg (27.0-33.0); Mean Corpuscular Volume 91.7 fL (80.0-98.0); Mean Platelet Volume 10.2 fL (9.4-12.4); Monocytes Absolute Auto 0.4 X10*3/uL (0.1-1.2); Monocytes Percent Auto 6.9 % (2-11); Neutrophils Absolute Auto 3.5 x10*3/uL (2.0-8.3); Neutrophils Percent Auto 66.3 % (45-73); Platelet Count 195 X10*3/uL (160-400); Red Blood Count 4.45 X10*6/uL (4.60-5.80); Red Cell Distribution Width 12.9 % (11.0-16.0); White Blood Count 5.2 X10*3/uL (4.8-10.8)
[2021-07-16 13:51] LABS: Appearance Urine CLEAR; Color Urine YELLOW; Glucose Urine UA NEG (NEG); Leukocyte Esterase Urine NEG (NEG); Nitrite Urine NEG (NEG); PH 5.5 (5.0-8.0); Specific Gravity - Urine 1.015 (1.005-1.025); Urine Blood NEG (NEG); Urine Ketones NEG (NEG); Urine Protein NEG (NEG-TRACE)
[2021-07-16 13:58] LABS: Anion Gap 10 (12-20); Blood Urea Nitrogen 11 mg/dL (9-16); Calcium 9.4 mg/dL (8.4-10.2); Carbon Dioxide 28 mmol/L (22-29); Chloride 107 mmol/L (96-108); Estimated Glomerular Filt Rate > 60; Glucose Random 129 mg/dL (60-115); Iron 80 mcg/dL (45-160); Percent Iron Saturation 30 % (15-50); Potassium 4.7 mmol/L (3.3-5.1); Sodium 140 mmol/L (135-145); Total Iron Binding Capacity 269 mcg/dL (228-428); Unsaturated Iron Binding 189 ug/dL
[2021-07-16 14:25] LABS: Ferritin 431 ng/mL (20-250)
== END 2021-07-16 11:51 | disposition home or self-care (01) ==
LOC: HO.HMGCLDS 11:50
PROVIDERS: PCP Nurse Practitioner Family; Visit Provider Orthopaedic Surgery
DX: Z01.812 Encounter for preprocedural laboratory examination (principal); E11.9 Type 2 diabetes mellitus without complications; R79.89 Other specified abnormal findings of blood chemistry
CPT/HCPCS: 36415; 80048; 81003; 82728; 83540; 85025

== ENCOUNTER → 2021-08-05 11:09 | Outpatient (BNVA) | payer OTHER, SELFPAY | PROVIDERS: PCP Nurse Practitioner Family; Visit Provider Physician Assistant | DX: Z01.818 Encounter for other preprocedural examination (principal); M16.11 Unilateral primary osteoarthritis, right hip | CPT/HCPCS: 99212 ==

== ENCOUNTER 2021-08-10 07:15 | Inpatient (IN) | payer OTHER, SELFPAY ==
--- NOTE | 2021-07-19 08:12 | ECG_ITS ---
Test Reason : PREPROCEDURAL CARDIOVASCUL EXAM Blood Pressure : / mmHG Vent. Rate : 066 BPM Atrial Rate : 066 BPM P-R Int : 172 ms QRS Dur : 080 ms QT Int : 406 ms P-R-T Axes : 061 054 029 degrees QTc Int : 425 ms Normal sinus rhythm Normal ECG No previous ECGs available Referred By: Jomar Ham Electronically Signed By:VEGA MARTINEZ
[2021-08-05 10:12] VITALS: BP 123/62; PULSE 68; RESP 20; O2SAT 97; BMI 38.0
[2021-08-05 12:05] LABS: MRSA Nasal PCR NEGATIVE (Negative); SA Nasal PCR POSITIVE (Negative)
[2021-08-05 12:12] LABS: MANUAL DIFF FLAG NO
[2021-08-05 12:40] LABS: Basophils Percent Auto 0.6 % (0-2); Eosinophils Absolute Auto 0.2 X10*3/uL (0.0-0.4); Eosinophils Percent Auto 3.4 % (0-4); Hematocrit 42.1 % (42.0-52.0); Hemoglobin 14.5 g/dl (14.0-18.0); Imm Gran Abs Auto 0.07 X10*3/uL (0.00-0.03); Imm Gran Pct Auto 1.1 % (0.0-0.4); Lymphocytes Absolute Auto 1.7 X10*3/uL (1.2-4.9); Lymphocytes Percent Auto 25.8 % (20-40); Mean Corpuscular HGB Conc 34.4 g/dl (31.0-36.0); Mean Corpuscular Hemoglobin 31.7 pg (27.0-33.0); Mean Corpuscular Volume 91.9 fL (80.0-98.0); Mean Platelet Volume 9.2 fL (9.4-12.4); Monocytes Absolute Auto 0.6 X10*3/uL (0.1-1.2); Monocytes Percent Auto 8.5 % (2-11); Neutrophils Absolute Auto 3.9 x10*3/uL (2.0-8.3); Neutrophils Percent Auto 60.6 % (45-73); Platelet Count 231 X10*3/uL (160-400); Red Blood Count 4.58 X10*6/uL (4.60-5.80); Red Cell Distribution Width 13.2 % (11.0-16.0); White Blood Count 6.4 X10*3/uL (4.8-10.8)
--- NOTE | 2021-08-06 08:38 | P.CONAN_ITS ---
Documented by User: Catina Aviles NP 08/06/21 11:10 HPI - Anesthesia Eval Consult details Narrative: 61yo M for Right Hip Total Replacement Optimized per PCP [facility] Active Problems Active Problems: All Active Problems (Updated 08/05/21 @ 10:20 by Barbara Sr RN) Physical exam (Acute) Diabetes (Acute) Screening PSA (prostate specific antigen) (Acute) Elevated PSA (Acute) Hot flash in male (Acute) Tubular adenoma of colon (Acute) Right knee pain (Acute) Osteoarthritis of right knee (Acute) Anemia (Acute) Joint effusion of knee (Acute) Abscess or cellulitis of perineum (Acute) Cellulitis of perineum (Acute) Upper respiratory tract infection (Acute) Osteoarthritis of right hip (Acute) Physical exam (Acute) Elevated ferritin (Acute) High triglycerides (Acute) Black stools (Acute) LLQ pain (Acute) Kidney stones (Acute) Cough (Acute) Pre-op evaluation (Acute) DM (diabetes mellitus), type 2 (Acute) Hemorrhoids (Acute) Lumbar radiculopathy (Acute) Family history of colon cancer (Acute) Past Medical History Medical History Arthritis BPH (benign prostatic hyperplasia) COVID-19 vaccine series completed Disc degeneration, lumbar DM (diabetes mellitus), type 2 Dyslipidemia Elevated ferritin Family history of colon cancer Gout Hemorrhoids History of bladder stone HTN (hypertension) Lumbar radiculopathy Onychomycosis PO (obstructive sleep apnea) Renal calculi Sacroiliitis Screening for colon cancer Spinal stenosis Spondylosis of lumbar spine Tubular adenoma Family History Family History Father Unknown family medical history Mother Colon cancer Sister Diabetes mellitus Maternal Grandmother Unknown family medical history Brother No problems noted. Son No problems noted. Daughter No problems noted. Surgical History Surgical History History of colonoscopy History of knee surgery History of pilonidal cyst History of tonsillectomy History of umbilical hernia repair Hx of cystoscopy Hx of cystoscopy Social History Social History Household Members: Spouse Household Members Other:: has children Housing: House Are you a primary property caretaker to a significant other at home: No Do you presently have visiting nurse or other home services: No Alcohol intake: current Alcohol intake frequency: a few times a month Alcohol type: hard liquor Patient Tobacco Use Status: Never used Tobacco Use of substances other than those prescribed or required for medical reasons: No Have you been hit, kicked, punched, or otherwise hurt by someone within the past year? 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[employer] Allergies Allergy/AdvReac Type Severity Reaction Status Date / Time No Known Allergies Allergy Verified 08/05/21 11:19 [No Known Allergies*] Home Medications Medication Instructions Recorded Confirmed Last Taken Type cyclobenzaprine 10 mg tablet 10 mg PO TID PRN 05/20/20 08/05/21 Unknown History ibuprofen 800 mg tablet 800 mg PO TID 06/29/20 08/05/21 Unknown History oxycodone-acetaminophen 5 mg-325 1 tab PO BID PRN 10/19/20 08/05/21 Unknown History mg tablet amlodipine 10 mg-benazepril 40 mg 1 cap PO BEDTIME 08/05/21 08/05/21 Unknown History capsule albuterol sulfate 90 mcg/actuation 1 puff INHALATION Q4-6H PRN 08/10/21 08/10/21 Unknown History breath activated powder inhaler (ProAir RespiClick) Exam Exam Date and Time: August 06, 2021 0838 Height,Weight and Vital Signs: Height 5 ft 11 in Weight 123.5 kg Last Vital Signs Pulse 68 08/05/21 10:12 Resp 20 08/05/21 10:12 BP 123/62 08/05/21 10:12 Pulse Ox 97 08/05/21 10:12 Pertinent Lab Results Pertinent Lab Results: Laboratory Tests 07/16/21 08/05/21 12:00 12:11 WBC 6.4 Hgb 14.5 Hct 42.1 Plt Count 231 Sodium 140 Potassium 4.7 Chloride 107 Carbon Dioxide 28 BUN 11 Creatinine 0.85 Assessment and Plan Assessment Anesthesia Assessment: Chart Reviewed Documented by User: Hosea Payne MD 08/10/21 10:20 HPI - Anesthesia Eval Consult details Narrative: 61yo M for Right Hip Total Replacement chronc back pain Optimized per PCP [facility] Past Medical History Medical History Arthritis BPH (benign prostatic hyperplasia) COVID-19 vaccine series completed Disc degeneration, lumbar DM (diabetes mellitus), type 2 Dyslipidemia Elevated ferritin Family history of colon cancer Gout Hemorrhoids History of bladder stone HTN (hypertension) Lumbar radiculopathy Onychomycosis PO (obstructive sleep apnea) Renal calculi Sacroiliitis Screening for colon cancer Spinal stenosis Spondylosis of lumbar spine Tubular adenoma Family History Family History Father Unknown family medical history Mother Colon cancer Sister Diabetes mellitus Maternal Grandmother Unknown family medical history Brother No problems noted. Son No problems noted. Daughter No problems noted. Family history of problems with anesthesia: No Surgical History Surgical History History of colonoscopy History of knee surgery History of pilonidal cyst History of tonsillectomy History of umbilical hernia repair Hx of cystoscopy Hx of cystoscopy History of Problems with Anesthesia: No Social History Social History Household Members: Spouse Household Members Other:: has children Housing: House Are you a primary property caretaker to a significant other at home: No Do you presently have visiting nurse or other home services: No Alcohol intake: current Alcohol intake frequency: a few times a month Alcohol type: hard liquor Patient Tobacco Use Status: Never used Tobacco Use of substances other than those prescribed or required for medical reasons: No Have you been hit, kicked, punched, or otherwise hurt by someone within the past year? 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 Meds Allergies Allergy/AdvReac Type Severity Reaction Status Date / Time No Known Allergies Allergy Verified 08/05/21 11:19 [No Known Allergies*] Home Medications Medication Instructions Recorded Confirmed Last Taken Type cyclobenzaprine 10 mg tablet 10 mg PO TID PRN 05/20/20 08/05/21 Unknown History ibuprofen 800 mg tablet 800 mg PO TID 06/29/20 08/05/21 Unknown History oxycodone-acetaminophen 5 mg-325 1 tab PO BID PRN 10/19/20 08/05/21 Unknown History mg tablet amlodipine 10 mg-benazepril 40 mg 1 cap PO BEDTIME 08/05/21 08/05/21 Unknown History capsule albuterol sulfate 90 mcg/actuation 1 puff INHALATION Q4-6H PRN 08/10/21 08/10/21 Unknown History breath activated powder inhaler (ProAir RespiClick) Exam Airway Mallampati Class: IV TM Dist: >3cm Neck ROM: Full Loose/Missing/Broken Teeth: Yes (Multiple chipped teeth ) Heart: S1, S2 Lungs: distant breath sounds b/l Assessment and Plan Assessment Anesthesia Assessment: Anesthesia Plan Discussed Final Anesthetic Review Family History of Problems with Anesthesia: No History of Problems with Anesthesia: No NPO: Yes ASA Class: III Final Preanesthetic Review: Meds/Allgs Chart Reviewed, Consent Obtained/Reviewed and Anes Risks/Benef Reviewed Patient Risk: Intermediate Procedure Risk: Intermediate Anesthetic Plan Anesthetic Plan: GA Disposition: Inp. Admit - Standard Bed
[2021-08-10] VITALS (20 sets, daily range): BP systolic 145–178; BP diastolic 72–91; PULSE 73–108; RESP 16–20; TEMP 36.1–37.1; O2SAT 94–100
--- NOTE | ~2021-08-10 | XR_ITS ---
EXAMINATION: XR PELVIS CLINICAL INFORMATION: Post right hip replacement COMPARISON: Previous pelvis x-ray April 2020 TECHNIQUE: AP view of the pelvis. FINDINGS: There is a new right hip replacement in satisfactory position. No fracture or dislocation is seen. There are postoperative changes to the soft tissues. XR/XR pelvis 1-2V IMPRESSION: Satisfactory appearance of right hip replacement.
[2021-08-10] MEDS: oxyCODONE HCl ER 10 MG TAB.ER.12H PO ×2 (07:07→20:52)
[2021-08-10] MEDS: Lactated Ringers 1,000 ML 100 ML IVCONT ×2 (07:08→15:10)
[2021-08-10 07:15] LABS: Glucose, Whole Blood 153 mg/dL (60-115)
[2021-08-10 07:28] LABS: COVID-19 Test Negative (Negative)
--- NOTE | 2021-08-10 07:32 | MHC.SHP ---
Pre-Procedural Eval Section A Date of Service: 08/10/21 The patient is an INPATIENT: No Changes since office visit: Yes Patient answered all questions; No Cold of Flu in the past 2 weeks, No New Medical Problems and No Changes in Medication The History & Physical has been completed within 30 days and I have reviewed it.: No Section B Chief Complaint: RT MARIAM Allergies: Allergies Allergy/AdvReac Type Severity Reaction Status Date / Time No Known Allergies Allergy Verified 08/05/21 11:19 [No Known Allergies*] Plan I have reviewed the history and physical and performed a pertinent physical examination on my patient. No changes have occurred unless specified.
--- NOTE | 2021-08-10 09:21 | PHA.MEDREC ---
Pharmacy Consult ? Medication Reconciliation RN has completed the medication reconciliation, pharmacy reviewed.
--- NOTE | 2021-08-10 09:23 | PM.OP ---
Brief Operative Note Date of Service: 08/10/21 Pre-op diagnosis: Right hip OA Post-op diagnosis: same Procedure: Right MARIAM Implants: Martine Trident2 #56/20 deg liner Strker Accolade2 #6 132 deg with +2.5 36 ceramic Surgeon: Jomar Ham MD Anesthesia: GETA and local Was an Glass Cut Off Supervisor used for this Procedure?: Yes Glass Cut Off Supervisor: Cira Weaver Estimated blood loss (mL): 150 IV fluids (mL): 1,000 Pathology: other Condition: stable Disposition: PACU
[2021-08-10] MEDS: HYDROmorphone HCl 0.5 MG/0.5 ML SYRINGE 0.25 MG IVPUSH ×4 (09:50→12:49)
--- NOTE | 2021-08-10 10:11 | W.PM.OPN ---
Operative Note Operative Note Date of Service: 08/10/21 Narrative: Date of Service: 08/10/21 Pre-op diagnosis: Right hip OA Post-op diagnosis: same Procedure: Right MARIAM Implants: [place] Trident2 #56/20 deg liner Strronnie Accolade2 #6 132 deg with +2.5 36 ceramic Surgeon: Jomar Ham MD Anesthesia: GETA and local Was an Jukebox Routeman used for this Procedure?: Yes Jukebox Routeman: Cira Weaver Estimated blood loss (mL): 150 IV fluids (mL): 1,000 Pathology: other Condition: stable Disposition: PACU Procedure in detail: Patient was brought into the operating room and placed in the left lateral decubitus position. All bony prominences were well padded and the limb was prepped and draped in standard sterile fashion. Time-out was called to identify proper site procedure proper surgeon IV antibiotics and 1 g of transaxemic acid were administered. I began by making a curvilinear incision over the posterolateral aspect of the greater trochanter. Dissection was taken down to the tensor fascia which was incised in line with the incision and a Charnley retractor was placed. Cautery was used to maintain hemostasis. A werewolf device was also used. The hip was internally rotated and the external rotators were identified. The vessels were cauterized and a full-thickness hockey-stick capsulotomy was developed starting just proximal to the piriformis. This layer was tagged and a dull Hohmann retractor was placed underneath the neck in the hip was dislocated. The head was deformed and eburnated. A neck cut was made 1 cm proximal to the lesser trochanter and the head and neck were removed and measured 52mm on the back table. I started with a 48mm reamer and medialized to the inner table. The fovea was cauterized and removed. I sequentially reamed up to a size 56 and impacted a 56mm cup at 45 degrees of inclination and 25 degrees of version. I then placed a 20 deg posterior lipped liner and turned my attention to the femur. I identified the piriformis insertion with electrocuatery and I used this as a starting point for my jose luis cutter. The medius tendon was protected with a Hibs retractor at all times. I then used a Charnley awl to identify the canal and a curved curette to remove the lateral bone. I irrigated copiously. I then sequentially broached in the patient's natural version to a size 6/132deg and placed my trial implants. Using a +0 trial head I took the hip through range of motion. I was very satisfied with the stability and 0-90 with internal rotation and the length Therefore I removed all instrumentation and copiously irrigated. I placed my final femoral implant and again took the hip through range of motion and was satisfied with the stability and length using a +2.5mm 36 head. The ceramic head was impacted in place. I then irrigated for 3 minutes with iodine and placed 1 g of local transaxemic acid. I then performed a capsular closure with 2.0 fiberwire, Radha's fascia with 0 Vicryl, subcuticular with 2-0 Vicryl and the skin with augie. Patient was placed into a sterile dressing. Patient was extubated brought to the recovery room in stable condition. There were no known complications.
[2021-08-10 11:07] LABS: Glucose, Whole Blood 164 mg/dL (60-115)
[2021-08-10] MEDS: oxyCODONE HCl Immed Release 5 MG TABLET PO ×2 (12:48→17:05)
--- NOTE | 2021-08-10 14:23 | PM.IMCN ---
History of Present Illness Data of Consult Service Date: 08/10/21 Primary Care Provider: Thomas Hanks, [facility]- HPI Reason for consult: right hip pain 61M Presented for elective right total hip arthroplasty for osteoarthritis. Patient has past medical history of hypertension, PO, diabetes ( diet controlled). he is feeling well postoperatively, denies chest pain, shortness of breath, fever, chills. Pain is manageable. Review of Systems Review of Systems: Yes all other systems are reviewed and are negative [facility] Medical History Arthritis BPH (benign prostatic hyperplasia) COVID-19 vaccine series completed Disc degeneration, lumbar DM (diabetes mellitus), type 2 Dyslipidemia Elevated ferritin Family history of colon cancer Gout Hemorrhoids History of bladder stone HTN (hypertension) Lumbar radiculopathy Onychomycosis PO (obstructive sleep apnea) Renal calculi Sacroiliitis Screening for colon cancer Spinal stenosis Spondylosis of lumbar spine Tubular adenoma Family History Father Unknown family medical history Mother Colon cancer Sister Diabetes mellitus Maternal Grandmother Unknown family medical history Brother No problems noted. Son No problems noted. Daughter No problems noted. Surgical History History of colonoscopy History of knee surgery History of pilonidal cyst History of tonsillectomy History of umbilical hernia repair Hx of cystoscopy Hx of cystoscopy Social History Household Members: Spouse Household Members Other:: has children Housing: House Are you a primary landcare officer to a significant other at home: No Do you presently have visiting nurse or other home services: No Alcohol intake: current Alcohol intake frequency: a few times a month Alcohol type: hard liquor Patient Tobacco Use Status: Never used Tobacco Use of substances other than those prescribed or required for medical reasons: No Have you been hit, kicked, punched, or otherwise hurt by someone within the past year? 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 Meds Allergies Allergy/AdvReac Type Severity Reaction Status Date / Time No Known Allergies Allergy Verified 08/05/21 11:19 [No Known Allergies*] Active Medications: Current Medications Acetaminophen (Acetaminophen 325 Mg Tablet) 650 mg PO Q6H PRN PRN Reason: Pain, Mild (Pain Scale 1-3) Albuterol Sulfate (Albuterol Sulfate 90 Mcg 8 Gm Inhaler) 1 puff INHALE Q4H PRN PRN Reason: wheezing Allopurinol (Allopurinol 300 Mg Tablet) 300 mg PO DAILY [facility] Amlodipine Besylate (Amlodipine Besylate 10 Mg Tablet) 10 mg PO BEDTIME [facility] Aspirin (Aspirin 325 Mg Tablet) 325 mg PO BID [facility] Atorvastatin Calcium (Atorvastatin Calcium 20 Mg Tablet) 20 mg PO BEDTIME [facility] Celecoxib (Celecoxib 200 Mg Capsule) 200 mg PO BID [facility] Cyclobenzaprine HCl (Cyclobenzaprine Hcl 10 Mg Tablet) 10 mg PO TID PRN PRN Reason: Muscle Spasm Dextrose (Dextrose 50 % 25 Gm/50 Ml Syringe) 25 gm IVPUSH Q15M PRN; Protocol PRN Reason: per Hypoglycemia Standing Ord. Docusate Sodium (Docusate Sodium 100 Mg Capsule) 100 mg PO BID [facility] Glucose (Glucose Gel 15 Gm Gel..Gram.) 15 gm PO Q15M PRN; Protocol PRN Reason: per Hypoglycemia Standing Ord. Hydromorphone HCl (Hydromorphone Hcl 1 Mg/Ml Syringe) 0.25 mg IVPUSH Q4H PRN; Protocol PRN Reason: Pain, Severe (Pain Scale 7-10) Lactated Ringer's (Lr) 1,000 mls @ 100 mls/hr IVCONT .Q10H [facility] Last Admin: 08/10/21 07:08 Dose: 100 mls/hr Documented by: Insulin Human Lispro (Insulin Lispro 100 Unit/Ml 3 Ml Vial) 0 unit SUBCUT QIDACHS [facility]; Protocol Lisinopril (Lisinopril 40 Mg Tablet) 40 mg PO BEDTIME [facility] Ondansetron HCl (Ondansetron Hcl 4 Mg/2 Ml Vial) 4 mg IVPUSH Q8H PRN PRN Reason: Nausea and Vomiting Oxycodone HCl (Oxycodone Hcl Immed Release 5 Mg Tablet) 5 mg PO Q4H PRN PRN Reason: Pain, Moderate (Pain Scale 4-6 Last Admin: 08/10/21 12:48 Dose: 5 mg Documented by: Oxycodone HCl (Oxycodone Hcl Er 10 Mg Tab.Er.12h) 10 mg PO BID [facility] Sodium Chloride (0.9 % Sodium Chloride Flush 3 Ml Syringe) 3 ml IVFLUSH QSHIFT [facility] Tamsulosin HCl (Tamsulosin Hcl 0.4 Mg Capsule) 0.4 mg PO DAILY [facility] Trazodone HCl (Trazodone Hcl 100 Mg Tablet) 100 mg PO BEDTIME [facility] Home Medications Medication Instructions Recorded Confirmed Last Taken Type cyclobenzaprine 10 mg tablet 10 mg PO TID PRN 05/20/20 08/05/21 Unknown History ibuprofen 800 mg tablet 800 mg PO TID 06/29/20 08/05/21 Unknown History oxycodone-acetaminophen 5 mg-325 1 tab PO BID PRN 10/19/20 08/05/21 Unknown History mg tablet amlodipine 10 mg-benazepril 40 mg 1 cap PO BEDTIME 08/05/21 08/05/21 Unknown History capsule albuterol sulfate 90 mcg/actuation 1 puff INHALATION Q4-6H PRN 08/10/21 08/10/21 Unknown History breath activated powder inhaler (ProAir RespiClick) Physical Exam Vital Signs and Narrative: Vital Signs: Last Vital Signs Temp 98.7 F 08/10/21 13:27 Pulse 100 08/10/21 14:10 Resp 18 08/10/21 13:27 BP 145/78 H 08/10/21 14:10 Pulse Ox 95 08/10/21 14:10 BMI result Body Mass Index 38.0 General: AO X 3, no acute distress Resp: CTA bilateral, no accessory muscles used CVS: S1,S2,RRR GI: soft, non tender, non distended Neuro: motor grossly intact, alert Psych: appropriate affect, appropriate insight Results Labs CBC and Chem 7: 08/05/21 12:11 Labs: Laboratory Results - last 24 hr 08/10/21 08/10/21 08/10/21 06:08 06:27 11:03 POC Glucose 153 H 164 H COVID-19 (FRAN) Negative COVID-19 Clin Com See Note Imaging Radiologist's Impressions: Impressions Pelvis X-Ray 08/10/21 12:44 IMPRESSION: Satisfactory appearance of right hip replacement. Assessment and Plan (1) Diabetes: Status: Acute Plan 61M Admitted status post elective total hip arthroplasty status post right total hip arthroplasty management per Orthopedics Follow-up CBC, BMP PO patient has CPAP from home to use at night hypertension continue amlodipine, FABIOLA-inhibitor diabetes normally diet controlled, continue diabetic diet, monitor point of care in use insulin sliding scale as needed. hyperlipidemia continue statin
[2021-08-10 15:58] LABS: Glucose, Whole Blood 191 mg/dL (60-115)
[2021-08-10] MEDS: HYDROmorphone HCl 1 MG/ML SYRINGE 0.25 MG IVPUSH (18:05)
[2021-08-10 20:36] LABS: Glucose, Whole Blood 172 mg/dL (60-115)
[2021-08-10] MEDS: Atorvastatin Calcium 20 MG TABLET PO (20:52)
[2021-08-10] MEDS: amLODIPine Besylate 10 MG TABLET PO (20:52)
[2021-08-10] MEDS: Docusate Sodium 100 MG CAPSULE PO (20:52)
[2021-08-10] MEDS: lisinopriL 40 MG TABLET PO (20:53)
[2021-08-10] MEDS: traZODone HCL 100 MG TABLET PO (20:54)
[2021-08-10] MEDS: Insulin Lispro 100 UNIT/ML 3 ML VIAL SUBCUT (20:56)
[2021-08-10] MEDS: Celecoxib 200 MG CAPSULE PO (20:57)
[2021-08-11 04:00] VITALS: BP 133/70; PULSE 81; RESP 16; TEMP 36.5; O2SAT 96
[2021-08-11] MEDS: Lactated Ringers 1,000 ML 100 ML IVCONT (05:14)
[2021-08-11 05:55] LABS: MANUAL DIFF FLAG NO
[2021-08-11 06:16] LABS: Basophils Percent Auto 0.2 % (0-2); Eosinophils Percent Auto 0.1 % (0-4); Hematocrit 35.8 % (42.0-52.0); Hemoglobin 12.2 g/dl (14.0-18.0); Imm Gran Abs Auto 0.06 X10*3/uL (0.00-0.03); Imm Gran Pct Auto 0.7 % (0.0-0.4); Lymphocytes Absolute Auto 1.4 X10*3/uL (1.2-4.9); Lymphocytes Percent Auto 16.1 % (20-40); Mean Corpuscular HGB Conc 34.1 g/dl (31.0-36.0); Mean Corpuscular Hemoglobin 31.3 pg (27.0-33.0); Mean Corpuscular Volume 91.8 fL (80.0-98.0); Mean Platelet Volume 9.8 fL (9.4-12.4); Monocytes Absolute Auto 0.9 X10*3/uL (0.1-1.2); Monocytes Percent Auto 10.6 % (2-11); Neutrophils Absolute Auto 6.4 x10*3/uL (2.0-8.3); Neutrophils Percent Auto 72.3 % (45-73); Platelet Count 197 X10*3/uL (160-400); Red Cell Distribution Width 13.1 % (11.0-16.0); White Blood Count 8.9 X10*3/uL (4.8-10.8)
[2021-08-11 06:18] LABS: Anion Gap 13 (12-20); Blood Urea Nitrogen 14 mg/dL (9-16); Calcium 9.2 mg/dL (8.4-10.2); Carbon Dioxide 25 mmol/L (22-29); Chloride 103 mmol/L (96-108); Creatinine Clr Calc Pharmacy 123.5; Estimated Glomerular Filt Rate > 60; Glucose Fasting 132 mg/dL (60-99); Potassium 4.2 mmol/L (3.3-5.1); Sodium 137 mmol/L (135-145)
[2021-08-11 07:30] LABS: Glucose, Whole Blood 109 mg/dL (60-115)
[2021-08-11] MEDS: oxyCODONE HCl Immed Release 5 MG TABLET PO ×2 (07:31→13:47)
--- NOTE | 2021-08-11 07:38 | PM.PNORT ---
Subjective Subjective Date of Service: 08/11/21 Interval history: POD1 s/p RTHA. Patient is resting in bed comfortably. No overnight events. Pain is well managed. No additional complaints. Physical Exam Vital Signs: Vital Signs: Last Vital Signs Temp 97.7 F 08/11/21 04:00 Pulse 81 08/11/21 04:00 Resp 16 08/11/21 04:00 BP 133/70 08/11/21 04:00 Pulse Ox 96 08/11/21 04:00 BMI result Body Mass Index 38.0 Const: General: cooperative, healthy appearing and no acute distress Resp: Effort & Inspection: normal respiratory effort and able to speak in complete sentences Cardio: Rate: regular rate Peripheral pulses: Peripheral pulses 2+ throughout GI: Palpation (GI): Soft to palpation Skin: Lesions: no lesions Rashes: no rashes Extrem: Other: Right hip aquacel is clean, dry, and intact. NVI. Procedures Date of Service Date of Service: 08/11/21 Progress Note: A&P Assessment and plan (1) S/P total hip arthroplasty: Status: Acute Plan Continue pain mgmnt Begin ASA for dvt ppx begin PT for RTHA Dispo planning-Pending PT eval, pain mgmnt Fall Risk Details Current Medications: Current Medications Acetaminophen (Acetaminophen 325 Mg Tablet) 650 mg PO Q6H PRN PRN Reason: Pain, Mild (Pain Scale 1-3) Albuterol Sulfate (Albuterol Sulfate 90 Mcg 8 Gm Inhaler) 1 puff INHALE Q4H PRN PRN Reason: wheezing Allopurinol (Allopurinol 300 Mg Tablet) 300 mg PO DAILY [facility] Amlodipine Besylate (Amlodipine Besylate 10 Mg Tablet) 10 mg PO BEDTIME [facility] Last Admin: 08/10/21 20:52 Dose: 10 mg Documented by: Aspirin (Aspirin 325 Mg Tablet) 325 mg PO BID [facility] Atorvastatin Calcium (Atorvastatin Calcium 20 Mg Tablet) 20 mg PO BEDTIME [facility] Last Admin: 08/10/21 20:52 Dose: 20 mg Documented by: Celecoxib (Celecoxib 200 Mg Capsule) 200 mg PO BID [facility] Last Admin: 08/10/21 20:57 Dose: 200 mg Documented by: Cyclobenzaprine HCl (Cyclobenzaprine Hcl 10 Mg Tablet) 10 mg PO TID PRN PRN Reason: Muscle Spasm Dextrose (Dextrose 50 % 25 Gm/50 Ml Syringe) 25 gm IVPUSH Q15M PRN; Protocol PRN Reason: per Hypoglycemia Standing Ord. Docusate Sodium (Docusate Sodium 100 Mg Capsule) 100 mg PO BID [facility] Last Admin: 08/10/21 20:52 Dose: 100 mg Documented by: Glucose (Glucose Gel 15 Gm Gel..Gram.) 15 gm PO Q15M PRN; Protocol PRN Reason: per Hypoglycemia Standing Ord. Hydromorphone HCl (Hydromorphone Hcl 1 Mg/Ml Syringe) 0.25 mg IVPUSH Q4H PRN; Protocol PRN Reason: Pain, Severe (Pain Scale 7-10) Last Admin: 08/10/21 18:05 Dose: 0.25 mg Documented by: Lactated Ringer's (Lr) 1,000 mls @ 100 mls/hr IVCONT .Q10H [facility] Last Admin: 08/11/21 05:14 Dose: 100 mls/hr Documented by: Insulin Human Lispro (Insulin Lispro 100 Unit/Ml 3 Ml Vial) 0 unit SUBCUT QIDACHS [facility]; Protocol Last Admin: 08/11/21 07:33 Dose: Not Given Documented by: Lisinopril (Lisinopril 40 Mg Tablet) 40 mg PO BEDTIME [facility] Last Admin: 08/10/21 20:53 Dose: 40 mg Documented by: Ondansetron HCl (Ondansetron Hcl 4 Mg/2 Ml Vial) 4 mg IVPUSH Q8H PRN PRN Reason: Nausea and Vomiting Oxycodone HCl (Oxycodone Hcl Immed Release 5 Mg Tablet) 5 mg PO Q4H PRN PRN Reason: Pain, Moderate (Pain Scale 4-6 Last Admin: 08/11/21 07:31 Dose: 5 mg Documented by: Oxycodone HCl (Oxycodone Hcl Er 10 Mg Tab.Er.12h) 10 mg PO BID [facility] Last Admin: 08/10/21 20:52 Dose: 10 mg Documented by: Sodium Chloride (0.9 % Sodium Chloride Flush 3 Ml Syringe) 3 ml IVFLUSH QSHIFT [facility] Last Admin: 08/11/21 07:29 Dose: Not Given Documented by: Tamsulosin HCl (Tamsulosin Hcl 0.4 Mg Capsule) 0.4 mg PO DAILY [facility] Trazodone HCl (Trazodone Hcl 100 Mg Tablet) 100 mg PO BEDTIME [facility] Last Admin: 08/10/21 20:54 Dose: 100 mg Documented by: Time Spent With Patient Time: Total time spent is greater than 50% in coordination of care (as documented) at patient's floor/unit and/or counseling patient: Quality Stroke Does the patient have a stroke diagnosis?: No VTE Prior VTE?: No VTE Risk Level:: Surgical - very high VTE Device Contraindication: N/A - Device Ordered VTE Drug Contraindication: N/A - Med Ordered
[2021-08-11 08:00] VITALS: BP 107/58; PULSE 84; RESP 18; TEMP 36.6; O2SAT 98
[2021-08-11 08:20] VITALS: BP 133/70; PULSE 81; O2SAT 96
[2021-08-11] MEDS: Aspirin 325 MG TABLET PO (08:56)
[2021-08-11] MEDS: oxyCODONE HCl ER 10 MG TAB.ER.12H PO (08:57)
[2021-08-11] MEDS: Tamsulosin HCL 0.4 MG CAPSULE PO (08:57)
[2021-08-11] MEDS: Docusate Sodium 100 MG CAPSULE PO (08:57)
[2021-08-11] MEDS: Celecoxib 200 MG CAPSULE PO (08:57)
[2021-08-11] MEDS: allopurinoL 300 MG TABLET PO (08:57)
--- NOTE | 2021-08-11 09:24 | HO.POSTANES ---
Post Anesthesia Evaluation Post Anesthesia Evaluation Vital Signs: Vital Signs Temp Pulse Resp BP Pulse Ox 08/11/21 08:20 81 133/70 96 08/11/21 08:00 97.9 F 84 18 107/58 L 98 08/11/21 04:00 97.7 F 81 16 133/70 96 08/10/21 23:24 97.8 F 89 18 161/75 H 95 Anesthesia: General Mental Status: Awake Pain Control: Satisfactory Nausea/Vomiting: None Hydration: Adequate Anesthesia-Related Issues: No Anes. Related Issues
[2021-08-11] MEDS: HYDROmorphone HCl 1 MG/ML SYRINGE 0.25 MG IVPUSH (11:03)
[2021-08-11 11:34] LABS: Glucose, Whole Blood 125 mg/dL (60-115)
[2021-08-11 12:00] VITALS: BP 135/62; PULSE 94; RESP 16; TEMP 36.2; O2SAT 95
--- NOTE | 2021-08-11 12:09 | MHC.CM.PN ---
met with pt who lives with his he is indepednt cm intervention is not expected to be needed dc plan home no servceis
[2021-08-11 13:48] VITALS: BP 135/62; PULSE 94; O2SAT 95
--- NOTE | 2021-08-11 13:51 | P.F2F_ITS ---
Service Date Service Date: 08/11/21 Encounter Date of encounter: 08/11/21 Reasons for Services Signs and symptoms assessed: Pt. is considered homebound due to recent surgery. Unable to drive, poor balance, poor gait mechanics. Reason for physical therapy: home safety and mobility, therapeutic exercises, restore joint function, gait/transfer training, assess need for DME and ADL training Reason for occupational therapy: home safety and mobility, therapeutic exercises, restore joint function, gait/transfer training, assess need for DME and ADL training Homebound: Leaving the home is medically contraindicated at this time without the asist of a device and/or another person due th the listed conditions above and below. Reason homebound: unsteady gait / fall risk, leg weakness, pain with transfers, poor balance / fall risk and unable to drive Homebound supporting statement: Pt. is considered homebound due to recent surgery. Unable to drive, poor balance, poor gait mechanics. Certification: Based on the above findings, I certify that this patient is confined to the home and needs intermittent senior care care, physical therapy and/or speech therapy, or continues to need occupational therapy. The patient is under my care, and I have initiated the establishment of the plan of care. The patient will be followed by a physician who will periodically review the plan of care.
--- NOTE | 2021-08-11 13:52 | P.DS_ITS ---
DS: Providers Provider Date of Service: 08/11/21 Date of admission: 08/10/21 07:15 Primary care physician: QUENTIN Horner Consults: 08/10/21 13:27 Consult to Hospitalist Routine Consulting Provider: Hospitalist Reason For Exam: routine medical management DS: Diagnosis Discharge Diagnosis (1) S/P total hip arthroplasty: Status: Acute DS: Summary Hospital Course Hospital Course: The patient underwent a successful right total hip arthroplasty, they were transferred to PACU and then to the floor to recover. During their stay, their vitals were stable, afebrile at 97.1. Labs were unremarkable, H/H 12.2/35.8. POD 1 they were started on Aspirin 325mg po bid for DVT ppx, they also received Physical Therapy services twice a day. Prior to discharge, their dressing and incision was clean dry and intact and the plan was to be discharged home with VNA services. Time Spent with Patient Time attestation: Total time spent providing and/or coordinating discharge services: Discharge coordination time: Less than 30 minutes Quality: Safe Use of Opioids Does Pt have an Active Cancer Diagnosis on the Problem List?: No Quality: Stroke Does the patient have a stroke diagnosis?: No Physical Exam Vital Signs: Vital Signs: Last Vital Signs Temp 97.1 F 08/11/21 12:00 Pulse 94 08/11/21 13:48 Resp 16 08/11/21 12:00 BP 135/62 08/11/21 13:48 Pulse Ox 95 08/11/21 13:48 BMI result Body Mass Index 38.0 Const: General: cooperative, healthy appearing and no acute distress Resp: Effort & Inspection: normal respiratory effort and able to speak in complete sentences Cardio: Rate: regular rate Peripheral pulses: Peripheral pulses 2+ throughout GI: Palpation (GI): Soft to palpation Skin: Lesions: no lesions Rashes: no rashes Extrem: Other: Right hip aquacel is clean, dry, and intact. NVI. Ambulated with P.T. DS: Data Data Completed and Pending Completed studies during hospitalization [Text1]: Pending at discharge 08/10/21 08:49 Surgical [PTH] Routine Labs on day of discharge: Laboratory Results - last 24 hr 08/10/21 08/10/21 08/11/21 15:20 19:59 05:43 WBC 8.9 RBC 3.90 L Hgb 12.2 L Hct 35.8 L MCV 91.8 MCH 31.3 MCHC 34.1 RDW 13.1 Plt Count 197 MPV 9.8 Immature Gran % (Auto) 0.7 H Neut % (Auto) 72.3 Lymph % (Auto) 16.1 L Bates % (Auto) 10.6 Eos % (Auto) 0.1 Baso % (Auto) 0.2 Lymph # (Auto) 1.4 Bates # (Auto) 0.9 Eos # (Auto) 0.0 Baso # (Auto) 0.0 Abs Immat Gran (auto) 0.06 H Absolute Neuts (auto) 6.4 Absolute Nucleated RBC 0.000 Nucleated RBC % (auto) 0.0 Sodium Potassium Chloride Carbon Dioxide Anion Gap BUN Creatinine Estim Creat Clear Calc Estimated GFR POC Glucose 191 H 172 H Fasting Glucose Calcium 08/11/21 08/11/21 08/11/21 05:43 07:26 11:29 WBC RBC Hgb Hct MCV MCH MCHC RDW Plt Count MPV Immature Gran % (Auto) Neut % (Auto) Lymph % (Auto) Bates % (Auto) Eos % (Auto) Baso % (Auto) Lymph # (Auto) Bates # (Auto) Eos # (Auto) Baso # (Auto) Abs Immat Gran (auto) Absolute Neuts (auto) Absolute Nucleated RBC Nucleated RBC % (auto) Sodium 137 Potassium 4.2 Chloride 103 Carbon Dioxide 25 Anion Gap 13 BUN 14 Creatinine 0.84 Estim Creat Clear Calc 123.5 Estimated GFR > 60 POC Glucose 109 125 H Fasting Glucose 132 H Calcium 9.2 Discharge Plan Discharge Patient Disposition: Home Health Service Discharge Diagnosis: s/p RTHA Referrals: Anisha Hill PA-C [Physician Medical/Surgery Registered Nurse] - 08/26/21 12:30 pm Discharge Medications: New acetaminophen 325 mg Tablet 650 mg PO Q6H PRN (Reason: Pain, Mild (Pain Scale 1-3)) 7 Days Qty: 240 0RF celecoxib 200 mg Capsule 200 mg PO BID 30 Days Qty: 60 0RF aspirin 325 mg Tablet 325 mg PO BID 42 Days Qty: 84 0RF docusate sodium 100 mg Capsule 100 mg PO BID 30 Days Qty: 60 0RF oxycodone 5 mg Tablet 5 mg PO Q4H PRN (Reason: Pain, Moderate (Pain Scale 4-6) 7 Days Qty: 42 0RF Continued tamsulosin 0.4 mg capsule 0.4 mg PO DAILY Qty: 90 1RF atorvastatin 20 mg tablet 20 mg PO BEDTIME 90 Days Qty: 90 3RF omega-3 acid ethyl esters 1 gram capsule 1 cap PO BID 90 Days Qty: 180 0RF sildenafil 100 mg tablet 100 mg PO DAILY PRN (Reason: sexual activity) 30 Days Qty: 30 6RF Rx Instructions: administer 30 minutes to 4 hours before activity trazodone 100 mg tablet 100 mg PO BEDTIME Qty: 90 1RF (DME) walker [facility] See Rx Instructions .MEDSUPPLY Qty: 1 0RF Rx Instructions: Folding Front wheeled walker allopurinol 300 mg tablet 300 mg PO DAILY Qty: 90 0RF amlodipine-benazepril 10-40 mg capsule 1 cap PO BEDTIME 0RF ProAir RespiClick 90 mcg/actuation aerosol powdr breath activated 1 puff inhalation Q4-6H PRN (Reason: wheezing) 0RF cyclobenzaprine 10 mg tablet 10 mg PO TID PRN (Reason: Muscle Spasm) 0RF Discontinued ibuprofen 800 mg tablet 800 mg PO TID 0RF oxycodone-acetaminophen 5-325 mg tablet 1 tab PO BID PRN (Reason: Pain) 0RF Discharge Orders: Discharge Order (Routine); Ordered 08/11/21 Ordered By: Cira Weaver Diet: regular diet Activity on Discharge: Use cane or walker Stand Alone Forms: Patient Portal Discharge page Care Plan Goals: restore fxn to rt hip Health Concerns: none Plan of Treatment: Physical Therapy for total hip arthroplasty: posterior precautions, gait training, ROM, strength Limit stair climbing No showering, no tub bath-keep dressing clean, dry and intact No driving x6 weeks Continue Asprin tabs once a day x 6 weeks Follow up with [facility] Orthopedics in 2 weeks Assessment: stable for d/c
--- NOTE | 2021-08-11 14:07 | MHC.CM.PN ---
PATIENT IS DISCHARGED HOME WITH [facility] FOR HOME P.T. RN AWARE OF PLAN.
--- NOTE | 2021-08-11 14:10 | MHC.CM.PN ---
pt dcd home with [facility] for physical therapty
== END 2021-08-11 14:43 | disposition home health service (06) | DRG 470 ==
LOC: HO.SSSA 07:16 → HO.S3 10:49
PROVIDERS: Physician Assistant; Admitting Provider Orthopaedic Surgery; PCP Nurse Practitioner Family; Visit Provider Orthopaedic Surgery
PROC: 0SR903A Replacement of Right Hip Joint with Ceramic Synthetic Substitute, Uncemented, Open Approach (ICD-10-PCS; CPT 27130; principal; 2021-08-10 07:30)
DX: M16.11 Unilateral primary osteoarthritis, right hip (principal); N40.0 Benign prostatic hyperplasia without lower urinary tract symptoms; E11.9 Type 2 diabetes mellitus without complications; I10 Essential (primary) hypertension; E78.5 Hyperlipidemia, unspecified; G47.33 Obstructive sleep apnea (adult) (pediatric); Z20.822 Contact with and (suspected) exposure to COVID-19; Z79.899 Other long term (current) drug therapy
CPT/HCPCS: 36415; 72170; 80048; 82947; 85025; 86850; 86900; 86901; 87635; 87640; 87641; 88304; 88311; 93005; 97110; 97116; 97162; 97166; C1776; J0131; J0690; J1100; J1170; J2250; J2370; J2405; J3010

== ENCOUNTER → 2021-08-25 11:54 | Outpatient (BNVA) | payer OTHER, SELFPAY | PROVIDERS: PCP Internal Medicine; Visit Provider Orthopaedic Surgery | DX: Z13.89 Encounter for screening for other disorder (principal) ==

== ENCOUNTER → 2021-08-26 11:54 | Outpatient (BNVA) | payer OTHER, SELFPAY | PROVIDERS: PCP Nurse Practitioner Family; Visit Provider Physician Assistant | DX: Z47.1 Aftercare following joint replacement surgery (principal); Z96.641 Presence of right artificial hip joint | CPT/HCPCS: 99212 ==

== ENCOUNTER → 2021-09-17 10:04 | Outpatient (BNVA) | payer OTHER, SELFPAY | PROVIDERS: PCP Nurse Practitioner Family; Visit Provider Physician Assistant | DX: Z47.1 Aftercare following joint replacement surgery (principal); Z96.649 Presence of unspecified artificial hip joint | CPT/HCPCS: 99212 ==

== ENCOUNTER 2021-09-29 10:00 | Outpatient (RCR) | payer OTHER, SELFPAY ==
--- NOTE | 2021-08-26 13:24 | MHC.PT.EP ---
[facility] [place] [facility] [place] [facility] [place] Office [address] Vincent Yancey [address] [phone] F: [phone] F: [phone] F: [phone] F: [phone] Physical Therapy Plan of Care Date of Evaluation: Date of Surgery: 08/10/21 Diagnosis: RIGHT MARIAM Assessment: 61 YO MALE REF TO PT S/P Rt MARIAM W POSTERIOR APPROACH ON 08/10/21. OBJECTIVE FINDINGS INCLUDE DECR POSTURAL AWARENESS W (+) PELVIC ASYMM, AROM DEFICITS IN Rt HIP AND ANKLE, (+) HIP FLEXOR DOMINANCE, COMPENSATORY GAIT W CANE, (+) HEALING INCISION Rt LAT HIP, AND FLUCTUATING PAIN IN Rt PROX LE AND LB . FUNCTIONALLY, HIS OVERALL ADLs ARE IMPACTED->HE IS OOW CURRENTLY, DECR BEVERLY TO PROLONGED STANDING AND WALKING, SQUATTING, LIFTING/ REGULAR DEMANDING ADLs. Pt IS MOTIVATED TO RTW - HE WOULD BENEFIT FROM PT TO ADDRESS PAIN/ SX MGMT, ROM, THER EXER, PROGRESSIVE FUNCTIONAL MOBILITY, AND DEV A HEP. Frequency and Duration: The patient will be seen 2 x WK x 8 WKS Short Term Goals: Pt DEMON PROPER QUAD SET IN 1 WK Pt'S Rt HIP PAIN DECREASED TO 2-3/10 IN 2 WKS Pt DEMON WFL AROM HIP EXT AND ANKLE DF/PF IN 3 WKS Pt DEMO IMPROVED GAIT MECH W LEAST RESTRICTIVE AD ON LEVEL GROUND AND STAIRS IN 2 WKS Longterm Goals: Pt INDEP W HEP PROGRESSION AND SELF-SX MGMT STRATEGIES IN 8 WKS Pt RESUME REG ADLs EVIDENT W IMPROVED LEFI SCORE BY 8-10 POINTS (AT EVAL ) IN 8 WKS Pt INCR LE STRENGTH BY 1 GRADE IN 8 WKS Treatment Plan: Modalities to reduce pain, spasms and effusion. Manual therapy to restore motion and function. Therapeutic exercise to improve strength and flexibility. Neuromuscular re-education for posture and balance. Therapeutic activities to return to functional activities of daily living. Electronically signed by: Johanny Pierce,PT Please sign and return to therapist. Thank you for your referral.
--- NOTE | 2021-09-29 11:59 | MHC.PT.DC ---
[facility] [place] Office [place] Office [place] Office [address] Vincent Yancey [address] [phone] F: [phone] F: [phone] F: [phone] F: [phone] Physical Therapy Discharge Report Diagnosis: RIGHT MARIAM Date of Surgery: 08/10/21 Date of Evaluation: 08/26/21 Date of Discharge: 09/29/21 Treatments to Date: 8 Cancellations to Date: 0 No Shows to Date: 0 Discharge Status: Achieved Goals Improved Function Independent with HEP Discharge Summary: Pt has made good progress since start of care. He has met the majority of his goals at this time although he does still have discomfort over the incision and in the groin. The discomfort in these areas are his only real limitations at this time. He is following up with ortho tomorrow and he was encouraged to discuss this with him. In terms of function and strength he is in a good place and has almost no limitations. 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 I am confident that with continuation of his HEP he will only continue to make further functional progress. At this time max benefits of skilled PT have been provided and skilled PT is no longer indicated at this time. Pt is in agreement with d/c today. Electronically signed by: Susi Polanco, PT, DPT, ATC Please sign and return to therapist. Thank you for your referral.
== END 2021-09-29 12:00 | disposition home or self-care (01) ==
LOC: HO.PTCHIC 10:00
PROVIDERS: PCP Internal Medicine; Visit Provider Physician Assistant
DX: Z96.641 Presence of right artificial hip joint (principal)
CPT/HCPCS: 97110; 97140; 97161

== ENCOUNTER 2021-09-30 07:21 | Outpatient (REF) | payer OTHER, SELFPAY ==
--- NOTE | ~2021-09-30 | XR_ITS ---
EXAMINATION: XR PELVIS CLINICAL INFORMATION: Hip pain COMPARISON: 08/10/2021 TECHNIQUE: AP view of the pelvis. FINDINGS: There is a total right hip arthroplasty. The femoral head component articulates appropriately with the acetabular component. No periprosthetic lucency or fracture. The left hip is well aligned with moderate degenerative changes. Joint space narrowing with sclerosis and osteophyte formation. The pelvic rim is intact. Degenerative changes at the lower lumbar spine. Normal bowel gas pattern. XR/XR pelvis 1-2V IMPRESSION: Total right hip arthroplasty in typical positioning and alignment. Moderate degenerative change of the left hip.
== END 2021-09-30 07:22 | disposition home or self-care (01) ==
LOC: HO.HOSX 07:21
PROVIDERS: Visit Provider Physician Assistant
DX: M25.559 Pain in unspecified hip (principal)
CPT/HCPCS: 72170

== ENCOUNTER → 2022-02-28 14:28 | Outpatient (BNVA) | payer OTHER, SELFPAY | PROVIDERS: PCP Nurse Practitioner Family; Visit Provider Physician Assistant | DX: R05.9 Cough, unspecified (principal); D12.6 Benign neoplasm of colon, unspecified; Z80.0 Family history of malignant neoplasm of digestive organs | CPT/HCPCS: 99212 ==

== ENCOUNTER 2022-03-03 15:19 | Outpatient (REF) | payer OTHER, SELFPAY | END 2022-03-03 15:20 | disposition home or self-care (01) | LOC: HO.HOSX 15:19 | PROVIDERS: Visit Provider Orthopaedic Surgery | DX: Z13.89 Encounter for screening for other disorder (principal) ==

== ENCOUNTER 2022-03-31 12:42 | Outpatient (REF) | payer OTHER, SELFPAY ==
--- NOTE | ~2022-03-31 | XR_ITS ---
EXAMINATION: XR AP BILATERAL KNEE XR KNEE, RIGHT CLINICAL INFORMATION: Right knee pain. COMPARISON: None. TECHNIQUE: AP bilateral knee standing 1 view. Right knee 2 views. FINDINGS: AP Bilateral Knee: There is mild reduction in medial and lateral compartment joint space both knees without bony erosive changes. No visible acute fracture, dislocation or subluxation seen. No bony erosive changes. Right Knee: There is mild reduction in medial and patellofemoral compartment joint space right knee without bony erosive changes. There is mild superior patellar spurring. Mild suprapatellar joint effusion is noted as well. No acute fracture, dislocation or bony erosive changes seen. XR/XR knee standing BI IMPRESSION: Degenerative arthritic changes tricompartment right knee in medial and lateral compartment left knee. There is mild right knee suprapatellar joint effusion with superior patellar spurring. No loose bodies are seen in either knee.
--- NOTE | ~2022-03-31 | XR_ITS ---
EXAMINATION: XR AP BILATERAL KNEE XR KNEE, RIGHT CLINICAL INFORMATION: Right knee pain. COMPARISON: None. TECHNIQUE: AP bilateral knee standing 1 view. Right knee 2 views. FINDINGS: AP Bilateral Knee: There is mild reduction in medial and lateral compartment joint space both knees without bony erosive changes. No visible acute fracture, dislocation or subluxation seen. No bony erosive changes. Right Knee: There is mild reduction in medial and patellofemoral compartment joint space right knee without bony erosive changes. There is mild superior patellar spurring. Mild suprapatellar joint effusion is noted as well. No acute fracture, dislocation or bony erosive changes seen. XR/XR knee RT 2V IMPRESSION: Degenerative arthritic changes tricompartment right knee in medial and lateral compartment left knee. There is mild right knee suprapatellar joint effusion with superior patellar spurring. No loose bodies are seen in either knee.
== END 2022-03-31 12:43 | disposition home or self-care (01) ==
LOC: HO.HOSX 12:42
PROVIDERS: Visit Provider Orthopaedic Surgery
DX: M17.11 Unilateral primary osteoarthritis, right knee (principal); M25.461 Effusion, right knee; E11.9 Type 2 diabetes mellitus without complications; Z96.641 Presence of right artificial hip joint
CPT/HCPCS: 20610; 73560; 73565; 99212; J1100

== ENCOUNTER 2022-04-27 15:41 | Outpatient (REF) | payer OTHER, SELFPAY ==
--- NOTE | ~2022-04-27 | US_ITS ---
EXAMINATION: US VENOUS ULTRASOUND WITH DOPPLER LOWER EXTREMITY, LEFT CLINICAL INFORMATION: Left lower extremity pain. Assess for occult DVT. COMPARISON: None TECHNIQUE: Ultrasound of the deep veins is performed from the hip to the calf with compression sonography and color and pulse Doppler assessment. Spectral analysis with color-flow imaging is performed. FINDINGS: There is normal venous compression and respiratory variation and augmented flow. The visualized common femoral vein, superficial femoral vein, profunda femoral vein, popliteal vein, and the trifurcation region shows no evidence of deep venous thrombosis. No popliteal fossa cyst. US/US venous duplex LE LT IMPRESSION: No DVT demonstrated in the left lower extremity.
== END 2022-04-27 15:42 | disposition home or self-care (01) ==
LOC: HO.US 15:41
PROVIDERS: Visit Provider Nurse Practitioner Family
DX: M79.662 Pain in left lower leg (principal)
CPT/HCPCS: 93971

== ENCOUNTER 2022-05-24 06:20 | Outpatient (REF) | payer OTHER, SELFPAY ==
[2022-05-24 11:35] LABS: Appearance Urine Clear; Color Urine Yellow; Glucose Urine UA Negative (Negative); Leukocyte Esterase Urine Trace (Negative); Nitrite Urine Negative (Negative); PH 5.5 (5.0-9.0); Specific Gravity - Urine 1.015 (1.005-1.025); UMIC TRIGGER UACC YES; Urine Blood Negative (Negative); Urine Ketones Negative (Negative); Urine Protein Negative (Neg-Trace)
[2022-05-24 11:37] LABS: Bacteria Urine None Seen (None Seen); Hyaline Casts Urine 0-2 /LPF (0-2); RBC Urine 0-2 /HPF (0-2); Squamous Epithelial Cell Urine 0-2 /HPF (0-2); WBC Urine 0-5 /HPF (0-5)
[2022-05-24 11:39] LABS: MANUAL DIFF FLAG NO
[2022-05-24 11:58] LABS: Basophils Percent Auto 0.6 % (0-2); Eosinophils Absolute Auto 0.1 X10*3/uL (0.0-0.4); Eosinophils Percent Auto 2.5 % (0-4); Hematocrit 37.7 % (42.0-52.0); Hemoglobin 13.1 g/dl (14.0-18.0); Imm Gran Abs Auto 0.06 X10*3/uL (0.00-0.03); Imm Gran Pct Auto 1.1 % (0.0-0.4); Lymphocytes Absolute Auto 1.5 X10*3/uL (1.2-4.9); Lymphocytes Percent Auto 28.1 % (20-40); Mean Corpuscular HGB Conc 34.7 g/dl (31.0-36.0); Mean Platelet Volume 9.9 fL (9.4-12.4); Monocytes Absolute Auto 0.5 X10*3/uL (0.1-1.2); Monocytes Percent Auto 8.6 % (2-11); Neutrophils Absolute Auto 3.1 x10*3/uL (2.0-8.3); Neutrophils Percent Auto 59.1 % (45-73); Platelet Count 208 X10*3/uL (160-400); Red Cell Distribution Width 13.3 % (11.0-16.0); White Blood Count 5.3 X10*3/uL (4.8-10.8)
[2022-05-24 12:26] LABS: Alanine Aminotransferase 43 U/L (0-40); Albumin Level 3.8 g/dL (3.5-5.0); Alkaline Phosphatase 89 U/L (39-117); Anion Gap 13 (12-20); Aspartate Amino Transferase 27 U/L (5-37); Bilirubin Total 1.2 mg/dL (0.0-1.0); Blood Urea Nitrogen 15 mg/dL (9-16); Calcium 8.9 mg/dL (8.4-10.2); Carbon Dioxide 25 mmol/L (22-29); Chloride 106 mmol/L (96-108); Cholesterol 194 mg/dL; Estimated Glomerular Filt Rate > 60; Glucose Fasting 170 mg/dL (60-99); HDL Cholesterol 25 mg/dL; LDL Cholesterol Calculated 97 mg/dl; Sodium 140 mmol/L (135-145); Triglycerides 363 mg/dL
[2022-05-24 12:28] LABS: Prostate Specific Antigen Scr 4.05 ng/mL (<0.05-4.0); TSH reflex Free T4 1.22 uIU/mL (0.32-4.0)
[2022-05-24 12:31] LABS: Estimated Average Glucose 128 mg/dL; Hemoglobin A1c % 6.1 %
[2022-05-24 12:46] LABS: Creatinine Urine 105.31 mg/dL; Microalbum/Creatinine Ratio Ur 4.7 ug/mg cr
== END 2022-05-24 06:21 | disposition home or self-care (01) ==
LOC: HO.HMGCLDS 06:20
PROVIDERS: Absent Provider Urology; PCP Nurse Practitioner Family; Visit Provider Nurse Practitioner Family
DX: Z00.00 Encounter for general adult medical examination without abnormal findings (principal); E11.9 Type 2 diabetes mellitus without complications; N40.1 Benign prostatic hyperplasia with lower urinary tract symptoms; Z12.5 Encounter for screening for malignant neoplasm of prostate
CPT/HCPCS: 36415; 80053; 80061; 81001; 82043; 83036; 84153; 84443; 85025

== ENCOUNTER 2022-08-23 06:30 | Day surgery (SDC) | payer OTHER, SELFPAY ==
[2022-08-19 10:27] VITALS: BMI 38.3
--- NOTE | 2022-08-22 12:56 | HO.ANESPROP2 ---
Documented by User: Catina Aviles NP 08/22/22 12:58 HPI - Anesthesia Eval Consult details Narrative: 62yo M for Upper Endoscopy and Colonoscopy [facility] Active Problems Active Problems: All Active Problems (Updated 04/25/22 @ 12:23 by Thomas Hanks, [facility]) Physical exam (Acute) Screening PSA (prostate specific antigen) (Acute) Elevated PSA (Acute) Hot flash in male (Acute) Tubular adenoma of colon (Acute) Right knee pain (Acute) Osteoarthritis of right knee (Acute) Anemia (Acute) Joint effusion of knee (Acute) Abscess or cellulitis of perineum (Acute) Cellulitis of perineum (Acute) Upper respiratory tract infection (Acute) Osteoarthritis of right hip (Acute) Physical exam (Acute) Elevated ferritin (Acute) High triglycerides (Acute) Black stools (Acute) LLQ pain (Acute) Kidney stones (Acute) Cough (Acute) Pre-op evaluation (Acute) S/P total hip arthroplasty (Acute) Blurred vision, bilateral (Acute) Cough (Acute) Effusion, right knee (Acute) Pain of left calf (Acute) DM (diabetes mellitus), type 2 (Acute) Hemorrhoids (Acute) Lumbar radiculopathy (Acute) Family history of colon cancer (Acute) Past Medical History Medical History Arthritis BPH (benign prostatic hyperplasia) COVID-19 vaccine series completed Diabetes Disc degeneration, lumbar DM (diabetes mellitus), type 2 Dyslipidemia Elevated ferritin Family history of colon cancer Gout Hemorrhoids History of bladder stone HTN (hypertension) Lumbar radiculopathy Onychomycosis PO (obstructive sleep apnea) Renal calculi Sacroiliitis Screening for colon cancer Spinal stenosis Spondylosis of lumbar spine Tubular adenoma Family History Family History Father Unknown family medical history Mother Colon cancer Sister Diabetes mellitus Maternal Grandmother Unknown family medical history Brother No problems noted. Son No problems noted. Daughter No problems noted. Family history of problems with anesthesia: No Surgical History Surgical History History of colonoscopy History of knee surgery History of pilonidal cyst History of tonsillectomy History of total right hip arthroplasty History of umbilical hernia repair Hx of cystoscopy Hx of cystoscopy History of Problems with Anesthesia: No Social History Social History Household Members: Spouse Household Members Other:: has children Housing: House Are you a primary patient care director to a significant other at home: No Do you presently have visiting nurse or other home services: No Alcohol intake: current Alcohol intake frequency: a few times a month Alcohol type: hard liquor Patient Tobacco Use Status: Never used Tobacco Use of substances other than those prescribed or required for medical reasons: No Are you DNR?: No Advance Directives: No Advance Directives Information Provided: Yes service: Yes Current occupational status: employed 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 Cognitive needs: No Hearing needs: No Vision needs: No Meds Allergies Allergy/AdvReac Type Severity Reaction Status Date / Time No Known Allergies Allergy Verified 08/23/22 07:53 [No Known Allergies*] Exam Exam Date and Time: August 22, 2022 1256 Height,Weight and Vital Signs: Height 5 ft 11 in Weight 124.738 kg Pertinent Lab Results Pertinent Lab Results: Laboratory Tests 05/24/22 05/24/22 06:36 06:36 WBC 5.3 Hgb 13.1 L Hct 37.7 L Plt Count 208 Sodium 140 Potassium 4.0 Chloride 106 Carbon Dioxide 25 BUN 15 Creatinine 0.93 Assessment and Plan Assessment Anesthesia Assessment: Chart Reviewed Final Anesthetic Review Family History of Problems with Anesthesia: No History of Problems with Anesthesia: No Documented by User: Salbador Webb MD 08/23/22 08:01 [facility] Past Medical History Medical History Arthritis BPH (benign prostatic hyperplasia) COVID-19 vaccine series completed Diabetes Disc degeneration, lumbar DM (diabetes mellitus), type 2 Dyslipidemia Elevated ferritin Family history of colon cancer Gout Hemorrhoids History of bladder stone HTN (hypertension) Lumbar radiculopathy Onychomycosis PO (obstructive sleep apnea) Renal calculi Sacroiliitis Screening for colon cancer Spinal stenosis Spondylosis of lumbar spine Tubular adenoma Family History Family History Father Unknown family medical history Mother Colon cancer Sister Diabetes mellitus Maternal Grandmother Unknown family medical history Brother No problems noted. Son No problems noted. Daughter No problems noted. Surgical History Surgical History History of colonoscopy History of knee surgery History of pilonidal cyst History of tonsillectomy History of total right hip arthroplasty History of umbilical hernia repair Hx of cystoscopy Hx of cystoscopy Social History Social History Household Members: Spouse Household Members Other:: has children Housing: House Are you a primary patient care director to a significant other at home: No Do you presently have visiting nurse or other home services: No Alcohol intake: current Alcohol intake frequency: a few times a month Alcohol type: hard liquor Patient Tobacco Use Status: Never used Tobacco Use of substances other than those prescribed or required for medical reasons: No Are you DNR?: No Advance Directives: No Advance Directives Information Provided: Yes service: Yes Current occupational status: employed 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 Cognitive needs: No Hearing needs: No Vision needs: No Meds Allergies Allergy/AdvReac Type Severity Reaction Status Date / Time No Known Allergies Allergy Verified 08/23/22 07:53 [No Known Allergies*] Exam Airway Mallampati Class: III TM Dist: >3cm Neck ROM: Limited Heart: rrr Lungs: cta Assessment and Plan Assessment Anesthesia Assessment: Anesthesia Plan Discussed Final Anesthetic Review NPO: Yes ASA Class: III Final Preanesthetic Review: No Changes in Pt Med Stat, Meds/Allgs Chart Reviewed, Consent Obtained/Reviewed and Anes Risks/Benef Reviewed Patient Risk: Intermediate Procedure Risk: Intermediate Anesthetic Plan Anesthetic Plan: MAC: and Agree w/ Assess. and Plan Disposition: Standard PACU
[2022-08-23 07:59] VITALS: BP 147/82; PULSE 74; RESP 16; TEMP 36.2; O2SAT 96
[2022-08-23] MEDS: Lactated Ringers 1,000 ML 100 ML IVCONT (08:13)
--- NOTE | 2022-08-23 08:32 | MHC.SHP ---
Pre-Procedural Eval Section A Date of Service: 08/23/22 Section B Chief Complaint: Benign neoplasm of colon,cough,hx malignant neopla Details of Present Illness: mother with CRC, EGd to r/o gerd causing cough Relevant Family History (Specify if Yes): Yes Relevant Social History: None Present Medications: see Short Stay Collaborative assessment Medical History: Significant History (Arthritis BPH (benign prostatic hyperplasia) COVID-19 vaccine series completed Diabetes Disc degeneration, lumbar DM (diabetes mellitus), type 2 Dyslipidemia Elevated ferritin Family history of colon cancer Gout Hemorrhoids History of bladder stone HTN (hypertension) Lumbar radiculopathy Onychomycos) History of Previous Operations: Relevant previous surgery/procedure and date(s) (History of colonoscopy History of knee surgery History of pilonidal cyst History of tonsillectomy History of total right hip arthroplasty History of umbilical hernia repair Hx of cystoscopy Hx of cystoscopy) Allergies: Allergies Allergy/AdvReac Type Severity Reaction Status Date / Time No Known Allergies Allergy Verified 08/23/22 07:53 [No Known Allergies*] Review of Systems Sugical H&P ROS: Negative: Constitution, Cardiovascular, Respiratory, Neurological, Psychiatric, Hem-Onc, Allergic/Immunologic, Gastrointestinal, Genitourinary, Musculoskeletal, Integumentary, Endocrine and Eyes/Ears/Nose/Throat Exam Surgical H&P Exam: Normal: HEENT, Normal: Heart, Normal: Lungs, Normal: Extremities, Normal: Abdomen, Normal: Skin and Normal: Neurological Plan Diagnosis/Plan: Unchanged I have reviewed the history and physical and performed a pertinent physical examination on my patient. No changes have occurred unless specified. Time Spent With Patient Time: Total time managing care of this patient today ____ minutes.
--- NOTE | 2022-08-23 08:55 | P.OP_ITS ---
Operative Note Operative Note Date of Service: 08/23/22 Narrative: Operative Information Procedure Description: EGD, Colonoscopy Indication: cough, r/o GERd, screening and hx of colon polyps Anesthesia: MAC FLEXIBLE TRANSORAL UPPER GASTROINTESTINAL ENDOSCOPY AND COLONOSCOPY PROCEDURE NOTE UPPER ENDOSCOPY Consent: Indications for the procedure and potential complications of bleeding, perforation, reaction to medications and missed diagnosis were discussed with the patient and informed consent was obtained. Instrument: Olympus GIF H 190 J mid size upper endoscope Monitoring: Vital signs and clinical assessment, continuous EKG monitoring, Pulse oximetry, Carbon Dioxide monitoring and blood pressure monitoring were done throughout the procedure. Procedure: The patient was placed in the left lateral decubitis position and pre-procedure medications were administered and a bite block was placed. The endoscope was inserted into the mouth and advanced under direct vision to the third part of duodenum. A careful inspection was made as the upper endoscope was withdrawn including a retroflexed examination of the proximal stomach; Findings and interventions are described below. Findings: Larynx:normal Esophagus: GE junction at 42 cm, diaphragm hiatus at 42 cm, bogginess and erythema at GEJ, bx taken from GEJ, distal and proximal esophagus Stomach: Mild erythema. Biopsies were obtained. Grade 2 flap valve on retroflexed examination of the cardia. Duodenum: Normal bulb and descending duodenum, Intervention: Biopsies as noted above COLONOSCOPY Instrument: Olympus variable stiffness pediatric scope 190L Colonoscopy Monitoring: Vital signs and clinical assessment, continuous EKG monitoring, Pulse oximetry, Carbon Dioxide monitoring and blood pressure monitoring were done throughout the procedure. Colon withdrawal time was 13 minutes. Procedure: The patient was placed in the left lateral decubitis position and pre-procedure medications were administered. After a digital rectal examination of the ano-rectum, the video colonoscope was inserted into the rectum and advanced through the colon to the cecum/TI. The colonoscope was slowly withdrawn in a retrograde panoramic fashion and the colon mucosa was carefully examined including a retroflexed view of the rectum. Findings and interventions are described below. Procedure Difficulty: moderate, redundant colon Findings: Terminal Ileum-normal Cecum:normal Ascending Colon: x 1 sessile polyp 6-8 mm removed with cold snare Transverse Colon - x1 sessile polyp 5-7mm removed with cold forceps Descending Colon: x 2 sessile polyps 6-9 mm removed with cold snare Sigmoid Colon: normal Rectum: Retroflexion with moderate internal hemorrhoids, grade i Anorectum - normal Colon preparation: [place] Bowel Preparation Scale Right colon; 2 Transverse colon: 2 Left colon; 2 (0 = Unprepared colon segment with mucosa not seen due to solid stool that cannot be cleared. 1 = Portion of mucosa of the colon segment seen, but other areas of the colon segment not well seen due to staining, residual stool and/or opaque liquid. 2 = Minor amount of residual staining, small fragments of stool and/or opaque liquid, but mucosa of colon segment seen well. 3 = Entire mucosa of colon segment seen well with no residual staining, small fragments of stool or opaque liquid) Impression and Post Procedure Diagnosis: Endoscopy Findings: mild gastritis esophagitis Colonoscopy Findings: polyps internal hemorrhoids redundant colon Plan: Await Pathology results Repeat Colonoscopy in 3 years or earlier if clinically indicated, may need genetic testing if cumulative polyp burden >10 over successive colonoscopies High fiber diet leaflet avoid straining at stool, epsom salts and sitz bath, anusol supps or cream trial of PPI if he agrees Above findings were reviewed with the patient and relevant handouts were provided if indicated.
[2022-08-23 09:25] VITALS: BP 112/67; PULSE 80; RESP 20; TEMP 36.3; O2SAT 96
[2022-08-23 09:40] VITALS: BP 136/76; PULSE 60; RESP 16; TEMP 36.3; O2SAT 97
== END 2022-08-23 11:05 | disposition home or self-care (01) ==
PROVIDERS: PCP Nurse Practitioner Family; Visit Provider Internal Medicine Gastroenterology
PROC: (CPT 45385; principal; 2022-08-23 08:20)
DX: Z12.11 Encounter for screening for malignant neoplasm of colon (principal); Z86.010 Personal history of colon polyps; Z80.0 Family history of malignant neoplasm of digestive organs; D12.2 Benign neoplasm of ascending colon; D12.4 Benign neoplasm of descending colon; K63.5 Polyp of colon; K64.0 First degree hemorrhoids; Q43.8 Other specified congenital malformations of intestine; R13.10 Dysphagia, unspecified; R05.3 Chronic cough; K20.80 Other esophagitis without bleeding; K29.50 Unspecified chronic gastritis without bleeding; K44.9 Diaphragmatic hernia without obstruction or gangrene; N40.0 Benign prostatic hyperplasia without lower urinary tract symptoms; G47.33 Obstructive sleep apnea (adult) (pediatric); E78.5 Hyperlipidemia, unspecified; E11.9 Type 2 diabetes mellitus without complications; I10 Essential (primary) hypertension; Z79.899 Other long term (current) drug therapy
CPT/HCPCS: 45385; 45380; 43239; 88305; 88342

== ENCOUNTER → 2022-09-08 14:52 | Outpatient (BNVA) | payer OTHER, SELFPAY | PROVIDERS: PCP Nurse Practitioner Family; Visit Provider Physician Assistant | DX: D12.2 Benign neoplasm of ascending colon (principal); D12.4 Benign neoplasm of descending colon; K20.90 Esophagitis, unspecified without bleeding; K29.70 Gastritis, unspecified, without bleeding; K64.9 Unspecified hemorrhoids; Q43.8 Other specified congenital malformations of intestine; Z80.0 Family history of malignant neoplasm of digestive organs; Z98.890 Other specified postprocedural states | CPT/HCPCS: 99212 ==

== ENCOUNTER → 2022-11-08 14:16 | Outpatient (BNVA) | payer SELFPAY | PROVIDERS: PCP Nurse Practitioner Family; Visit Provider Internal Medicine | DX: Z02.79 Encounter for issue of other medical certificate (principal) ==

== ENCOUNTER 2023-01-23 14:51 | Outpatient (AMB) | payer OTHER, SELFPAY ==
--- NOTE | 2023-01-23 14:55 | A.OFFPC_ITS ---
Vital Signs 01/23/23 14:56 01/23/23 15:41 Height 5 ft 11 in Weight 268 lb 4 oz BMI 37.4 BP 142/84 H 139/70 Blood Pressure Location Lt brachial Rt brachial Position Sitting Sitting Pulse 62 Pulse Source Pulse Oximeter Pulse Oximetry (%) 96 Oxygen Delivery Method Room Air Intake Visit Reasons: 3 month follow up DM Allergies No Known Allergies [No Known Allergies*] Allergy (Verified 01/23/23 14:58) Medication List - Last Reconciled 01/23/23 by JAH Pack-TOMA allopurinol 300 mg PO DAILY alpha lipoic acid 600 mg PO DAILY amlodipine 10 mg PO DAILY 90 days FreeStyle Lite Strips (blood sugar diagnostic) test blood sugar TID NS irbesartan 150 mg PO DAILY omega-3 acid ethyl esters 1 cap PO BID 90 days omeprazole 20 mg PO DAILY 90 days sildenafil 100 mg PO DAILY PRN 90 days tamsulosin 0.4 mg PO DAILY trazodone 100 mg PO BEDTIME Tobacco use date assessed: 01/23/23 Dental Screening Dental Screen Date: 01/23/23 Did you have a dental visit in the last 12 months?: Yes Did you have a dental problem in the last 6 months where you did not have access to dental care?: No Was dental information given to patient?: Patient has dentist HPI 3 month follow up DM HPI Details Pt is a diabetic, on an ARB. A1C in office today is 5.7. Microalbumin is up to date. Denies polyuria, polydipsia, and neuropathy. Pt denies any signs and symptoms of hypoglycemia and does know how to correct it. Eye exam is up to date. Pt reports GERD. He has tried pantoprazole in the past and had a bad reaction. He has tried omeprazole which worked well, will send this. [facility] Medical History COVID-19 vaccine series completed Arthritis Renal calculi Disc degeneration, lumbar Hemorrhoids Spondylosis of lumbar spine DM (diabetes mellitus), type 2 HTN (hypertension) History of bladder stone Family history of colon cancer Spinal stenosis Onychomycosis PO (obstructive sleep apnea) BPH (benign prostatic hyperplasia) Tubular adenoma Elevated ferritin Sacroiliitis Gout Dyslipidemia Screening for colon cancer Diabetes Lumbar radiculopathy Surgical History History of esophagogastroduodenoscopy (EGD) History of total right hip arthroplasty Hx of cystoscopy Hx of cystoscopy History of umbilical hernia repair History of pilonidal cyst History of colonoscopy History of tonsillectomy History of knee surgery Family History Father Unknown family medical history Mother Colon cancer Sister Diabetes mellitus Maternal Grandmother Unknown family medical history Brother No problems noted. Son No problems noted. Daughter No problems noted. 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 Jerman Rivera, Nicky Huang, Patrice Márquez and colleagues, with an educational ramonita from [employer]. Review of Systems Const Reports as per HPI Physical exam (Primary Care) Vital Signs: Last Vital Signs Pulse 62 01/23/23 14:56 BP 139/70 01/23/23 15:41 Pulse Ox 96 01/23/23 14:56 Oxygen Delivery Method Room Air 01/23/23 14:56 BMI result Body Mass Index 37.4 Tobacco/Smoking Status: Tobacco use Status Tobacco use date assessed 01/23/23 01/23/23 15:00 Patient Tobacco Use Status Never used Tobacco 01/23/23 14:56 e-Cigarette/Vaping Use Never Used 01/23/23 14:56 Thrive Assessment: Date of Thrive Assessment Date Thrive assessed 07/19/21 01/23/23 14:56 Const General: cooperative Nutritional Appearance: obese Orientation/consciousness: patient oriented x3 Resp Effort & Inspection: normal respiratory effort Auscultation: clear to auscultation bilaterally Cardio Rate: regular rate Rhythm: regular rhythm Heart sounds: S1 normal heart sound present and S2 normal heart sound present Neuro General: patient oriented x3 Extrem Other: bilat feet: + sensation with use of monofilament, feet intact Right lower extremity: no edema Left lower extremity: no edema Psych Appearance: grossly normal Mental Status: mental status grossly normal Speech and movement: Normal speech and movement present Affect: normal affect Attitude: cooperative Thought process: Normal thought process present Thought content: Normal thought content present Insight: Good insight present (Psych) Judgement: Good judgement present (Psych) Results AMB Hemoglobin A1c AMB Hemoglobin A1c 5.7 % Last Edit by Theresa Maciel CMA on 01/23/23 15: 20 Results Reviewed Results Reviewed: Laboratory Last Values Hgb A1c (Clinic) 5.7 % (4.0-6.0) 01/23/23 15:05 Assessment and Plan Assessment & Plan (1) DM (diabetes mellitus), type 2: Comment: Controlled Code(s): E11.9 - Type 2 diabetes mellitus without complications Plan: A1C done in office (2) GERD (gastroesophageal reflux disease): Code(s): K21.9 - Gastro-esophageal reflux disease without esophagitis Plan The patient agreed to the use of a medical parasitologist for this encounter. Scribed for QUENTIN [place] by Fabiola Deleon medical parasitologist, on 01/23/2023 at 15:20 EST Orders: Orders AMB Hemoglobin A1c Today E11.9 - Type 2 diabetes mellitus without complications Medications: New omeprazole 20 mg PO DAILY 90 caps 0RF 90 days Coding Level of Care Code Est Pt Level 3 (45713) Diagnoses DM (diabetes mellitus), type 2 E11.9 GERD (gastroesophageal reflux disease) K21.9
[2023-01-23 14:56] VITALS: BP 142/84; PULSE 62; O2SAT 96; BMI 37.4
[2023-01-23 15:41] VITALS: BP 139/70
== END 2023-01-23 16:55 | disposition home or self-care (01) ==
PROVIDERS: PCP Nurse Practitioner Family; Visit Provider Nurse Practitioner Family
DX: E11.9 Type 2 diabetes mellitus without complications (principal); K21.9 Gastro-esophageal reflux disease without esophagitis
CPT/HCPCS: 83036; 99213